=== PATIENT | female | born 1940 | race Caucasian/White ===

== ENCOUNTER → 2016-10-23 | Outpatient (CLI) | payer MEDICARE, OTHER | LOC: RAD 15:14 | PROVIDERS: ATTEND Radiology Radiation Oncology | DX: C54.1 Malignant neoplasm of endometrium (principal); C34.11 Malignant neoplasm of upper lobe, right bronchus or lung; C77.1 Secondary and unspecified malignant neoplasm of intrathoracic lymph nodes; C79.60 Secondary malignant neoplasm of unspecified ovary; R42 Dizziness and giddiness | CPT/HCPCS: 82565; 70553; A9577 ==

== ENCOUNTER → 2016-10-28 | Outpatient (CLI) | payer MEDICARE, OTHER ==
[2016-10-28 10:33] LABS: ABSOLUTE EOSINOPHILS # (AUTO) 0.1 10^3/uL (0.0-0.6); ABSOLUTE LYMPHOCYTES (AUTO) 0.7 10^3/uL (0.5-4.7); ABSOLUTE MONOCYTES (AUTO) 0.6 10^3/uL (0.1-1.4); ABSOLUTE NEUT (AUTO) 4.5 10^3/uL (1.7-8.2); BASOPHILS % (AUTO) 0.5 % (0-2); EOSINOPHILS % (AUTO) 2.2 % (0-6); HEMATOCRIT 44.4 % (36.0-47.0); HEMOGLOBIN 14.9 g/dL (12.0-15.5); HGB HCT DIFFERENCE 0.3; MEAN CORPUSCULAR HEMOGLOBIN 33.3 pg (27.0-33.4); MEAN CORPUSCULAR HGB CONC 33.5 g/dL (32.0-36.0); MEAN CORPUSCULAR VOLUME 99 fl (80-97); MONOCYTES % (AUTO) 10.2 % (3-13); RED BLOOD COUNT 4.47 10^6/uL (3.72-5.28); RED CELL DISTRIBUTION WIDTH 15.9 % (11.5-14.0); SEGMENTED NEUTROPHILS % (AUTO) 75.1 % (42-78); WHITE BLOOD COUNT 5.9 10^3/uL (4.0-10.5)
== END ==
LOC: LAB 10:10
PROVIDERS: ATTEND Radiology Radiation Oncology
DX: C34.11 Malignant neoplasm of upper lobe, right bronchus or lung (principal); C77.1 Secondary and unspecified malignant neoplasm of intrathoracic lymph nodes; C54.1 Malignant neoplasm of endometrium; C79.60 Secondary malignant neoplasm of unspecified ovary
CPT/HCPCS: 36415; 85025

== ENCOUNTER 2016-11-07 21:40 | Inpatient (IN) | payer MEDICARE, OTHER ==
--- NOTE | 2016-11-07 22:07 | ER Document Report ---
ED General - General Stated Complaint: BREATHING PROBLEMS Notes: Patient is a 76-year-old female presents for complaint of difficulty breathing. She has a history of COPD. She still smokes. She has a history of lung cancer. She was a chemotherapy but this was stopped 3 weeks ago because they found cancer into her right shoulder. They have scheduled for radiation of the right shoulder. Tonight she started having worsening difficulty breathing and therefore came to the ER. She was given Solu-Medrol by the paramedics. She's given a DuoNeb. This has helped some. She wears some oxygen at home but usually does not require it during the day. Her primary care doctor is Dr. Wayne. Her oncologist is in [place]. TRAVEL OUTSIDE OF THE [place] IN LAST 30 DAYS: No - Related Data Allergies/Adverse Reactions: piroxicam [From Feldene] Allergy (Intermediate, Verified 07/28/16 12:13) Depression codeine [Codeine] Allergy (Mild, Verified 07/28/16 12:13) hallucination carboplatin Allergy (Verified 07/28/16 12:35) Past Medical History - Social History Smoking Status: Current Every Day Smoker Frequency of alcohol use: None Drug Abuse: None Family History: Reviewed & Not Pertinent - Past Medical History Cardiac Medical History: Reports: Hx Coronary Artery Disease, Hx Heart Attack - 1999, stent x2, Hx Hypercholesterolemia, Hx Hypertension - meds x 12 years, Hx Peripheral Vascular Disease - Bilateral iliac artery stents were placed in September 2013 Pulmonary Medical History: Reports: Hx COPD, Hx Pneumonia - 1967, post op c- section Denies: Hx Asthma, Hx Bronchitis Neurological Medical History: Denies: Hx Cerebrovascular Accident, Hx Seizures GI Medical History: Denies: Hx Hepatitis, Hx Hiatal Hernia, Hx Ulcer Musculoskeltal Medical History: Reports Hx Arthritis - spine, DDD, spinal stenosis Psychiatric Medical History: Denies: Hx Depression Infectious Medical History: Denies: Hx Hepatitis Past Surgical History: Reports: Hx Cardiac Catheterization - w/ stents, Hx Section - x 3, Hx Cholecystectomy, Hx Coronary Stent, Hx Hysterectomy, Hx Orthopedic Surgery - neck surgury, Hx Vascular Surgery - Bilateral iliac artery stents placed in September 2013. Denies: Hx Mastectomy, Hx Open Heart Surgery, Hx Pacemaker - Immunizations Hx Diphtheria, Pertussis, Tetanus Vaccination: Yes Hx Pneumococcal Vaccination: 06/05/12 Review of Systems - Review of Systems Notes: My Normal Review Basic REVIEW OF SYSTEMS: CONSTITUTIONAL : Denies fever, chills, or sweats. Denies recent illness. EENT: Denies eye, ear, throat, or mouth pain or symptoms. Denies nasal or sinus congestion. CARDIOVASCULAR: Denies chest pain. RESPIRATORY: Cough, difficulty breathing, wheezing. GASTROINTESTINAL: Denies abdominal pain. Denies nausea, vomiting, or diarrhea. Denies constipation. Last BM: MUSCULOSKELETAL: Denies neck or back pain or joint pain or swelling. SKIN: Denies rash or skin lesions. NEUROLOGICAL: Denies altered mental status or loss of consciousness. Denies headache. Denies weakness or paralysis or loss of use of either side. Denies problems with gait or speech. Denies sensory or motor loss. ALL OTHER SYSTEMS REVIEWED AND NEGATIVE. Physical Exam - Notes Notes: General Appearance: Well nourished, alert, cooperative, mild acute distress, no obvious discomfort. Vitals: reviewed, See vital signs table. Head: no swelling or tenderness to the head Eyes: PERRL, EOMI, Conjuctiva clear Mouth: No decreasd moisture Neck: Supple, no neck tenderness, No thyromegaly Lungs: Diffuse wheezing, fair air exchange. Some tachypnea. Heart: Normal rate, Regular rythm, No murmur, no rub Abdomen: Normal BS, soft, No rigidity, No abdominal tenderness, No guarding, no rebound, no abdominal masses, no organomegaly Extremities: strength 5/5 in all extremities, good pulses in all extremities, no swelling or tenderness in the extremities, no edema. Skin: warm, dry, appropriate color, no rash Neuro: speech clear, oriented x 3, normal affect, responds appropriately to questions. Course - Re-evaluation Re-evalutation: 11/08/16 00:21 Patient says she is feeling some better; however, she still obviously has slight increased work of breathing. It is improved in comparison when she first arrived. I did take her off oxygen. She dropped down to 89%. This is she stood up off oxygen her sats went down to 85%. I have placed her back on nasal cannula. Will give her more breathing treatments. He'll it's appropriate to admit her for observation for further workup and treatment of her COPD exacerbation. - Laboratory Result Diagrams: 11/07/16 21:44 11/07/16 22:10 Laboratory results interpreted by me: 11/07/16 11/07/16 21:44 22:10 MCV 99 H RDW 15.2 H Plt Count 139 L Seg Neuts % (Manual) 87 H Band Neutrophils % 1 L Lymphocytes % (Manual) 2 L Abs Lymphs (Manual) 0.2 L Carbon Dioxide 32 H Creatinine 0.49 L Glucose 141 H - EKG Interpretation by Me Additional EKG results interpreted by me: 11/07/16 22:06 EKG is reviewed and interpreted by me. EKG shows normal sinus rhythm with rate of [address] segment elevation or depression. No ischemic T wave inversions. KS interval, QRS duration are within normal range. QTc interval is prolonged. Old EKG for comparison is from 09/21/2013. - Transfer of Care Notes: 11/08/16 01:17 Patient continues to have some wheezing. Her lung carter are improved but it's not as good as it were. She still has desaturation we take her off oxygen and desaturates even further when you get up to walk. Patient will be admitted for further workup and treatment of her COPD exacerbation. Dictation of this chart was performed using voice recognition software; therefore, there may be some unintended grammatical errors. Discharge - Discharge Clinical Impression: COPD exacerbation Condition: Stable Disposition: ADMITTED OBSERVATION Admitting Provider: Hospitalist Unit Admitted: Telemetry
[2016-11-07] MEDS ORDERED: IPRATROPIUM/ALBUTEROL 0.5-2.5 MG/3 ML AMPUL NEB ONE (22:14)
[2016-11-07] MEDS: MAGNESIUM SULFATE/D5W 100 ML IV SCH (22:22)
[2016-11-07 22:34] LABS: HEMATOCRIT 43.9 % (36.0-47.0); HEMOGLOBIN 14.8 g/dL (12.0-15.5); HGB HCT DIFFERENCE 0.5; MEAN CORPUSCULAR HEMOGLOBIN 33.4 pg (27.0-33.4); MEAN CORPUSCULAR HGB CONC 33.6 g/dL (32.0-36.0); MEAN CORPUSCULAR VOLUME 99 fl (80-97); RED BLOOD COUNT 4.43 10^6/uL (3.72-5.28); RED CELL DISTRIBUTION WIDTH 15.2 % (11.5-14.0)
[2016-11-07 22:52] LABS: ALANINE AMINOTRANSFERASE 51 U/L (9-52); ALBUMIN 4.2 g/dL (3.5-5.0); ALKALINE PHOSPHATASE 101 U/L (38-126); ANION GAP 9 (5-19); ASPARTATE AMINO TRANSFERASE 30 U/L (14-36); BILIRUBIN,TOTAL 0.7 mg/dL (0.2-1.3); BLOOD UREA NITROGEN 12 mg/dL (7-20); CALCIUM 9.8 mg/dL (8.4-10.2); CARBON DIOXIDE 32 mmol/L (22-30); CHLORIDE 101 mmol/L (98-107); CREATININE RESULT 0.49 mg/dL (0.52-1.25); GLUCOSE 141 mg/dL (75-110); POTASSIUM 3.7 mmol/L (3.6-5.0); SODIUM 141.9 mmol/L (137-145); TOTAL PROTEIN 6.8 g/dL (6.3-8.2)
[2016-11-07 23:10] LABS: BAND NEUTROPHILS % (MANUAL) 1 % (3-5); BASOPHILS % (MANUAL) 0 % (0-2); EOSINOPHILS % (MANUAL) 0 % (0-6); LYMPHOCYTES % (MANUAL) 2 % (13-45); TOTAL CELLS COUNTED 100
[2016-11-07 23:12] LABS: ANISOCYTOSIS SLIGHT; OVALOCYTES 1+; POIKILOCYTOSIS 1+; TEAR DROP CELLS 1+
[2016-11-08] MEDS ORDERED: ALBUTEROL SULFATE 0.083% NEB 2.5 MG/3 ML AMPUL NEB ONE (00:20)
[2016-11-08 00:32] LABS: VENOUS BLOOD BASE EXCESS 4.2 mmol/L; VENOUS BLOOD HCO3 31.1 mmol/L (20-32); VENOUS BLOOD PCO2 54.7 mmHg (35-63); VENOUS BLOOD PH 7.37 (7.30-7.42)
[2016-11-08] MEDS: MAGNESIUM SULFATE/D5W 100 ML IV SCH (00:43)
[2016-11-08] MEDS ORDERED: NITROGLYCERIN 0.4 MG/TAB 25 TAB/BOTTLE SL PRN (01:17)
[2016-11-08] MEDS ORDERED: IPRATROPIUM/ALBUTEROL 0.5-2.5 MG/3 ML AMPUL NEB PRN ×3 (01:17→08:10)
[2016-11-08] MEDS ORDERED: METHYLPREDNISOLONE INJ 125 MG/2 ML SDV IV ONE (01:19)
[2016-11-08] MEDS ORDERED: GUAIFENESIN SYRP 200 MG/10 ML UDC PO PRN (01:19)
[2016-11-08] MEDS ORDERED: ACETAMINOPHEN 325 MG TABLET PO PRN (01:19)
[2016-11-08] MEDS ORDERED: DILTIAZEM HCL 30 MG TABLET PO ONE (01:24)
[2016-11-08] MEDS ORDERED: FLUTICASONE/SALMETEROL DISKUS 250-50 MCG/DOSE IH SCH (01:30)
[2016-11-08] MEDS ORDERED: CEFEPIME 2 GM/D5W RTU 2 GM/50 ML RTUPB IV SCH ×2 (01:30→22:00)
[2016-11-08] MEDS ORDERED: FLUDROCORTISONE ACETATE 0.1 MG TABLET PO SCH ×2 (01:30→10:00)
[2016-11-08] MEDS ORDERED: PREDNISONE 20 MG TABLET PO SCH (01:30)
[2016-11-08] MEDS ORDERED: FLUTICASONE NASAL SPRAY 50 MCG/SPRY 120 SPRAY/16 GM NASL SCH (01:30)
[2016-11-08] MEDS ORDERED: DILTIAZEM HCL 120 MG CAP.SR.24H PO SCH (02:00)
[2016-11-08] MEDS ORDERED: CHOLECALCIFEROL (D3) 1,000 UNIT TABLET PO SCH (02:00)
[2016-11-08] MEDS ORDERED: VENLAFAXINE HCL 75 MG CAP.SR.24H PO SCH (02:00)
[2016-11-08] MEDS ORDERED: CARVEDILOL 12.5 MG TABLET PO SCH ×2 (02:00→10:00)
[2016-11-08 02:07] LABS: CREATINE KINASE MB 0.93 ng/mL (<4.55)
[2016-11-08 02:10] LABS: TROPONIN I < 0.012 ng/mL
[2016-11-08] MEDS ORDERED: CEFEPIME 2 GM/D5W RTU 2 GM/50 ML RTUPB IV ONE ×2 (02:15→13:00)
[2016-11-08] MEDS ORDERED: FLUDROCORTISONE ACETATE 0.1 MG TABLET ONE (03:20)
[2016-11-08] MEDS ORDERED: FLUTICASONE NASAL SPRAY 50 MCG/SPRY 120 SPRAY/16 GM ONE (03:21)
[2016-11-08] MEDS ORDERED: FLUTICASONE/SALMETEROL DISKUS 250-50 MCG/DOSE IH ONE (03:22)
[2016-11-08] MEDS ORDERED: INFLUENZA ADLT QUAD (36MOS+) 2016-17 VAC 0.5 ML SYR IM PRN (05:09)
[2016-11-08 05:50] LABS: CREATINE KINASE MB 1.32 ng/mL (<4.55)
[2016-11-08 05:53] LABS: TROPONIN I < 0.012 ng/mL
[2016-11-08] MEDS: HEPARIN SOD (PORCINE) 5,000 UNIT/ML 1 ML SYRINGE SUBCUT SCH ×3 (06:22→21:43)
[2016-11-08] MEDS: NORMAL SALINE 1000 ML 1,000 ML IV SCH ×2 (06:23→19:35)
--- NOTE | 2016-11-08 07:33 | PDOC H&P ---
History of Present Illness Admission Date/PCP: 11/08/16 01:19 HAMMAD TOTH MD Patient complains of: Shortness of breath and cough History of Present Illness: SHANA GIL is a 76 year old female with a past medical history of COPD, lung cancer with new metastasis and ongoing tobacco dependence who had been her usual state of health until approximately 24 hours prior to presentation developing shortness of breath subjective fever and chills and a nonproductive cough prompting her to seek evaluation emergency room where she's found to have a COPD exacerbation and referred to the hospitalist for admission. She denies chest pain palpitations nausea vomiting or recent antibiotics. Past Medical History Cardiac Medical History: Reports: Coronary Artery Disease, Myocardial Infarction - 1999, stent x2, Hyperlipidema, Hypertension - meds x 12 years, Peripheral Vascular Disease - Bilateral iliac artery stents were placed in September 2013 Pulmonary Medical History: Reports: Chronic Obstructive Pulmonary Disease (COPD) , Pneumonia - 1967, post op Denies: Asthma, Bronchitis Neurological Medical History: Denies: Seizures Malignancy Medical History: Reports: Cervical Cancer, Lung Cancer - With new metastases to shoulder and subsequent discontinuation of chemo GI Medical History: Denies: Hepatitis, Hiatal Hernia Musculoskeltal Medical History: Reports: Arthritis - spine, DDD, spinal stenosis Psychiatric Medical History: Reports: Tobacco Dependency Denies: Depression Hematology: Reports: Anemia - Hx of with 1st (placenta previa) Denies: Sickle Cell Disease Past Surgical History Past Surgical History: Reports: Cardiac Catheterization - w/ stents, Section - x 3, Cholecystectomy, Coronary Stent, Hysterectomy, Orthopedic Surgery - neck surgury, Vascular Surgery - Bilateral iliac artery stents placed in September 2013 Denies: Amputation, Mastectomy, Pacemaker Social History Smoking Status: Current Every Day Smoker Cigarettes Packs Per Day: 0.5 Frequency of Alcohol Use: Occasional Hx Recreational Drug Use: No Drugs: None Hx Prescription Drug Abuse: No - Advance Directive Resuscitation Status: Do Not Resuscitate Family History Family History: Hypertension Parental Family History Reviewed: Yes Children Family History Reviewed: Yes Sibling(s) Family History Reviewed.: Yes Medication/Allergy Home Medications: Albuterol Sulfate [Albuterol Sulfate 2.5mg/3 mL] 1 vial IH Q4 PRN 02/19/14 Albuterol Sulfate [Ventolin Hfa] 1 puff IH Q4 PRN 02/19/14 Alendronate Sodium [Fosamax] 70 mg PO Q7D 02/19/14 Aspirin [Aspirin 325 mg Tablet] 325 mg PO DAILY 02/19/14 Bimatoprost [Lumigan] 1 drop OU QHS 02/19/14 Brimonidine Tartrate [Alphagan P] 1 drop OU TID 02/19/14 Carvedilol [Coreg 12.5 mg Tablet] 12.5 mg PO BID 02/19/14 Cholecalciferol (Vitamin D3) [Vitamin D] 2,000 unit PO DAILY 02/19/14 Diltiazem HCl [Tiazac] 120 mg PO DAILY 02/19/14 Ezetimibe/Simvastatin [Vytorin 10-20 mg Tablet] 1 each PO DAILY 02/19/14 Fludrocortisone Acetate [Florinef 0.1 mg Tablet] 0.1 mg PO Q2D 02/19/14 Fluticasone Propionate [Flonase Nasal [place] 50 Mcg/[place] 16 gm] 1 spray NASL DAILY 02/19/14 Fluticasone/Salmeterol [Advair 250-50 Diskus 28 dose] 1 inh IH Q12H 02/19/14 Folic Acid 1 mg PO DAILY 02/19/14 Ipratropium/Albuterol Sulfate [Duoneb 0.5 mg-3 mg/3 ml Soln] 3 ml IH TID PRN 10/04 Nitroglycerin [Nitrostat 0.4 mg (1/150 Gr) Tabs 25/Bottle] 1 tab SL ASDIR PRN Timolol [Betimol] 1 drop OU DAILY 02/19/14 Tiotropium [place] [Spiriva Handihaler 18 mcg/dose (30 Dose)] 1 cap IH DAILY 10/04 Venlafaxine HCl [Effexor Xr] 150 mg PO DAILY 02/19/14 Levofloxacin [Levaquin 750 mg Tablet] 750 mg PO DAILY #5 tablet 02/21/14 Allergies/Adverse Reactions: piroxicam [From Feldene] Allergy (Intermediate, Verified 07/28/16 12:13) Depression codeine [Codeine] Allergy (Mild, Verified 07/28/16 12:13) hallucination carboplatin Allergy (Verified 07/28/16 12:35) Review of Systems Constitutional: PRESENT: as per HPI, chills, fatigue, fever(s), weakness. ABSENT: headache(s), weight gain, weight loss Eyes: ABSENT: visual disturbances Ears: ABSENT: hearing changes Cardiovascular: ABSENT: chest pain, dyspnea on exertion, edema, orthropnea, palpitations Respiratory: PRESENT: cough, dyspnea. ABSENT: hemoptysis, sputum Gastrointestinal: ABSENT: abdominal pain, constipation, diarrhea, hematemesis, hematochezia, nausea, vomiting Genitourinary: ABSENT: dysuria, hematuria Musculoskeletal: ABSENT: joint swelling Integumentary: ABSENT: rash, wounds Neurological: ABSENT: abnormal gait, abnormal speech, confusion, dizziness, focal weakness, syncope Psychiatric: PRESENT: anxiety. ABSENT: hallucinations, homidical ideation, suicidal ideation Endocrine: ABSENT: cold intolerance, heat intolerance, polydipsia, polyuria Hematologic/Lymphatic: ABSENT: easy bleeding, easy bruising Physical Exam Vital Signs: Temp Pulse Resp BP Pulse Ox 98.0 F 66 24 H 113/56 L 97 11/08/16 05:43 11/08/16 07:16 11/08/16 05:43 11/08/16 05:43 11/08/16 05:43 Intake & Output 11/06/16 11/07/16 11/08/16 11:59 11:59 11:59 Intake Total 5 Balance 5 Weight 45.6 kg General appearance: PRESENT: cooperative, mild distress, thin, other - Cachectic with temporal wasting Eye exam: PRESENT: conjunctiva pink, EOMI, PERRLA. ABSENT: scleral icterus Ear exam: PRESENT: normal external ear exam Mouth exam: PRESENT: moist, tongue midline Neck exam: ABSENT: carotid bruit, JVD, lymphadenopathy, thyromegaly Respiratory exam: PRESENT: accessory muscle use, chest wall tenderness, crackles , decreased breath sounds, prolonged expiratory phas, rales, tachypnea, wheezes. ABSENT: rhonchi Cardiovascular exam: PRESENT: RRR. ABSENT: diastolic murmur, rubs, systolic murmur Pulses: PRESENT: normal dorsalis pedis pul Vascular exam: PRESENT: normal capillary refill GI/Abdominal exam: PRESENT: normal bowel sounds, soft. ABSENT: distended, guarding, mass, organolmegaly, rebound, tenderness Rectal exam: PRESENT: deferred Extremities exam: PRESENT: full ROM. ABSENT: calf tenderness, clubbing, pedal edema Neurological exam: PRESENT: alert, awake, oriented to person, oriented to place , oriented to time, oriented to situation, CN II-XII grossly intact. ABSENT: motor sensory deficit Psychiatric exam: PRESENT: anxious, appropriate affect. ABSENT: homicidal ideation, suicidal ideation Skin exam: PRESENT: dry, intact, warm. ABSENT: cyanosis, rash Results Laboratory Results: 11/08/16 11/08/16 04:55 04:55 Creatine Kinase 53 CK-MB (CK-2) 1.32 Troponin I < 0.012 Impressions: Chest X-Ray 11/07/16 21:44 IMPRESSION: ABNORMAL CONTOUR RIGHT SUPERIOR MEDIASTINUM WITH ADJACENT LINEAR OPACITIES. THIS IS THIS LIKELY REPRESENTS SCARRING RELATED TO TREATMENT OF A PRIOR MALIGNANCY GIVEN PLACEMENT OF RIGHT-SIDED PORT. CORRELATE WITH CLINICAL HISTORY. NO DEFINITE ACUTE CARDIOPULMONARY PROCESS IDENTIFIED. Assessment & Plan - Diagnosis (1) COPD exacerbation Is this a current diagnosis for this admission?: YesPlan: Observation on a monitored bed with empiric antibiotics, albuterol Atrovent, Flonase, prednisone and symptomatically management following up CBC and blood culture (2) Lung cancer, primary, with metastasis from lung to other site Is this a current diagnosis for this admission?: YesPlan: On palliative care continue Supportive management consider hospice consult (3) Tobacco abuse Is this a current diagnosis for this admission?: YesPlan: Tobacco Dependence patient received tobacco cessation counseling and offered nicotine replacement options - Time Time Spent: 30 to 50 Minutes
[2016-11-08] MEDS ORDERED: LEVOFLOXACIN 750 MG/D5W RTU 750 MG/150 ML RTUPB IV SCH (10:00)
[2016-11-08] MEDS ORDERED: (PENDING PHARMACY ID) (Timolol [Betimol] 1 DROP) OU SCH (10:00)
--- NOTE | 2016-11-08 10:39 | EKG REPORT ---
SEVERITY:- ABNORMAL ECG - SINUS RHYTHM RIGHT ATRIAL ABNORMALITY LEFT AXIS DEVIATION CONSIDER RIGHT VENTRICULAR HYPERTROPHY BORDERLINE PROLONGED QT INTERVAL : Confirmed by: Ender Giron 08-Nov-2016 10:38:28
[2016-11-08] MEDS: FLUTICASONE NASAL SPRAY 50 MCG/SPRY 120 SPRAY/16 GM NASL SCH (10:48)
[2016-11-08] MEDS: TIOTROPIUM BROMIDE DPI 5 CAP/KIT (18 MCG/CAP) IH SCH (10:49)
[2016-11-08] MEDS: FLUTICASONE/SALMETEROL DISKUS 250-50 MCG/DOSE IH SCH ×2 (10:49→21:42)
[2016-11-08] MEDS: PREDNISONE 20 MG TABLET PO SCH ×2 (10:50→17:24)
[2016-11-08] MEDS: VENLAFAXINE HCL 75 MG CAP.SR.24H PO SCH (10:50)
[2016-11-08] MEDS: DILTIAZEM HCL 120 MG CAP.SR.24H PO SCH (10:51)
[2016-11-08] MEDS: ASPIRIN 325 MG TABLET PO SCH (10:51)
[2016-11-08] MEDS: FOLIC ACID 1 MG TABLET PO SCH (10:55)
[2016-11-08] MEDS: GUAIFENESIN 600 MG TABLET.SA PO SCH ×2 (10:55→21:42)
[2016-11-08] MEDS: CHOLECALCIFEROL (D3) 1,000 UNIT TABLET PO SCH (10:55)
[2016-11-08 11:27] LABS: CREATINE KINASE MB 1.15 ng/mL (<4.55)
[2016-11-08 11:31] LABS: TROPONIN I < 0.012 ng/mL
[2016-11-08] MEDS: CEFEPIME HCL 2 GM in DEXTROSE 5%-WATER 50 ML IV SCH ×2 (13:33→21:40)
[2016-11-08] MEDS: BRIMONIDINE TARTRATE 0.2% OPH SOLN 5 ML OU SCH ×2 (13:40→21:40)
[2016-11-08] MEDS ORDERED: (PENDING PHARMACY ID) (Brimonidine Tartrate [Alphagan P] 1 DROP) OU SCH (14:00)
[2016-11-08] MEDS: CARVEDILOL 12.5 MG TABLET PO SCH (21:42)
[2016-11-08] MEDS ORDERED: BIMATOPROST 0.01% OPH SOLN 2.5 ML/BOTTLE OU SCH (22:00)
[2016-11-08] MEDS ORDERED: BIMATOPROST OU SCH (22:00)
[2016-11-09] MEDS: HEPARIN SOD (PORCINE) 5,000 UNIT/ML 1 ML SYRINGE SUBCUT SCH (05:54)
[2016-11-09] MEDS: BRIMONIDINE TARTRATE 0.2% OPH SOLN 5 ML OU SCH (05:54)
[2016-11-09 07:09] LABS: HEMATOCRIT 37.4 % (36.0-47.0); HEMOGLOBIN 12.8 g/dL (12.0-15.5); MEAN CORPUSCULAR HEMOGLOBIN 34.2 pg (27.0-33.4); MEAN CORPUSCULAR HGB CONC 34.2 g/dL (32.0-36.0); MEAN CORPUSCULAR VOLUME 100 fl (80-97); RED BLOOD COUNT 3.74 10^6/uL (3.72-5.28); RED CELL DISTRIBUTION WIDTH 15.8 % (11.5-14.0); WHITE BLOOD COUNT 7.8 10^3/uL (4.0-10.5)
[2016-11-09 07:22] LABS: ANION GAP 7 (5-19); BLOOD UREA NITROGEN 17 mg/dL (7-20); CALCIUM 8.8 mg/dL (8.4-10.2); CARBON DIOXIDE 28 mmol/L (22-30); CHLORIDE 106 mmol/L (98-107); CREATININE RESULT 0.41 mg/dL (0.52-1.25); GLUCOSE 109 mg/dL (75-110); POTASSIUM 3.9 mmol/L (3.6-5.0); SODIUM 141.1 mmol/L (137-145)
[2016-11-09 07:25] LABS: BAND NEUTROPHILS % (MANUAL) 1 % (3-5); BASOPHILS % (MANUAL) 0 % (0-2); EOSINOPHILS % (MANUAL) 0 % (0-6); LYMPHOCYTES % (MANUAL) 2 % (13-45); TOTAL CELLS COUNTED 100
[2016-11-09 07:27] LABS: ANISOCYTOSIS 1+; OVALOCYTES 1+; POIKILOCYTOSIS 1+
[2016-11-09] MEDS ORDERED: ASPIRIN 325 MG TABLET PO SCH (10:00)
[2016-11-09] MEDS ORDERED: PREDNISONE 20 MG TABLET PO SCH (10:00)
[2016-11-09] MEDS ORDERED: LEVOFLOXACIN 750 MG TABLET PO SCH (10:00)
[2016-11-09] MEDS ORDERED: (PENDING PHARMACY ID) (Timolol [Betimol] 5 ML) OU SCH (10:00)
[2016-11-09] MEDS: GUAIFENESIN 600 MG TABLET.SA PO SCH (10:02)
[2016-11-09] MEDS: VENLAFAXINE HCL 75 MG CAP.SR.24H PO SCH (10:03)
[2016-11-09] MEDS: ASPIRIN 325 MG TABLET PO SCH (10:03)
[2016-11-09] MEDS: CHOLECALCIFEROL (D3) 1,000 UNIT TABLET PO SCH (10:03)
[2016-11-09] MEDS: FOLIC ACID 1 MG TABLET PO SCH (10:04)
[2016-11-09] MEDS: DILTIAZEM HCL 120 MG CAP.SR.24H PO SCH (10:04)
[2016-11-09] MEDS: TIOTROPIUM BROMIDE DPI 5 CAP/KIT (18 MCG/CAP) IH SCH (10:05)
[2016-11-09] MEDS: CARVEDILOL 12.5 MG TABLET PO SCH (10:05)
[2016-11-09] MEDS: FLUTICASONE NASAL SPRAY 50 MCG/SPRY 120 SPRAY/16 GM NASL SCH (10:06)
[2016-11-09] MEDS: FLUTICASONE/SALMETEROL DISKUS 250-50 MCG/DOSE IH SCH (10:06)
[2016-11-09 11:41] VITALS: BP 113/56
--- NOTE | 2016-11-10 07:49 | PDOC DISCHARGE SUMMARY ---
General - Admit/Disc Date/PCP Admission Date/Primary Care Provider: 11/08/16 01:19 HAMMAD TOTH MD Discharge Date: 11/09/16 - Additional Information Resuscitation Status: Do Not Resuscitate Discharge Activity: Activity As Tolerated, Balance Activity w/Rest Home Medications: Albuterol Sulfate [Albuterol Sulfate 2.5mg/3 mL] 1 vial IH Q4HP PRN 11/08/16 Albuterol Sulfate [Ventolin Hfa] 1 puff IH Q4HP PRN 11/08/16 Alendronate Sodium [Fosamax] 70 mg PO TH@1000 11/08/16 Aspirin [Aspirin 325 mg Tablet] 325 mg PO DAILY 11/08/16 Bimatoprost 5 ml OU QHS 11/08/16 Brimonidine Tartrate [Alphagan P] 1 drop OU Q8 11/08/16 Carvedilol [Coreg 12.5 mg Tablet] 12.5 mg PO Q12 11/08/16 Cholecalciferol (Vitamin D3) [Vitamin D3 2000 unit Tablet] 2,000 unit PO DAILY 11/08/16 Diltiazem HCl [Diltiazem ER] 120 mg PO DAILY 11/08/16 Ezetimibe/Simvastatin [Vytorin 10-20 mg Tablet] 1 each PO DAILY 11/08/16 Fludrocortisone Acetate [Florinef 0.1 mg Tablet] 0.1 mg PO Q2D 11/08/16 Fluticasone Propionate [Flonase Nasal [place] 50 Mcg/[place] 16 gm] 1 spray NASL DAILY 11/08/16 Fluticasone/Salmeterol [Advair 250-50 Diskus 14 Dose/Diskus] 1 inh IH Q12 Folic Acid [Folvite 1 mg Tablet] 1 mg PO DAILY 11/08/16 Nitroglycerin [Nitrostat 0.4 mg (1/150 Gr) Tabs 25/Bottle] 25 tab SL ASDIR PRN 11/08/16 Timolol [Betimol] 5 ml OU DAILY 11/08/16 Tiotropium [place] [Spiriva Handihaler 5 Cap/Kit (18 Mcg/Cap)] 1 cap IH DAILY Venlafaxine HCl ER [Effexor Xr 75 mg Cap.sr] 150 mg PO DAILY 11/08/16 Acetaminophen [Tylenol 325 mg Tablet] 650 mg PO Q4HP PRN tablet 11/09/16 Aspirin [Aspirin 325 mg Tablet] 325 mg PO DAILY tablet 11/09/16 Bimatoprost [[place]umigan 0.01% Oph Soln 2.5 ml/Bottle] 1 drop OU QHS bottle Cholecalciferol (Vitamin D3) [Vitamin D3 1000 Unit Tablet] 2,000 unit PO DAILY tablet 11/09/16 Diltiazem HCl [Cardizem Cd 120 mg Capsule] 120 mg PO DAILY cap.sr.24h 11/09/16 Fludrocortisone Acetate [Florinef 0.1 mg Tablet] 0.1 mg PO Q2D@1000 tablet Fluticasone Propionate [Flonase Nasal [place] 50 Mcg/[place] 16 gm] 1 spray NASL DAILY spray.pump 11/09/16 Fluticasone/Salmeterol [Advair 250-50 Diskus 14 Dose/Diskus] 1 inh IH Q12 inhaler 11/09/16 Folic Acid [Folvite 1 mg Tablet] 1 mg PO DAILY tablet 11/09/16 Guaifenesin [Mucinex Sr 600 mg Tablet.sa] 1,200 mg PO Q12 tablet.sa 11/09/16 Ipratropium/Albuterol Sulfate [Duoneb 3 ml Ampul] 3 ml NEB RTQ4HP PRN vial.neb 11/09/16 Levofloxacin [Levaquin 750 mg Tablet] 750 mg PO DAILY #7 tablet 11/09/16 Prednisone [Deltasone 20 mg Tablet] 20 mg PO BID #10 tablet 11/09/16 Venlafaxine HCl ER [Effexor Xr 75 mg Cap.sr] 150 mg PO DAILY cap.sr.24h History of Present Illness Patient complains of: Increasing shortness of breath and dyspnea History of Present Illness: SHANA GIL is a 76 year old female with history of COPD on home oxygen, lung cancer with metastasis on Palliative care, CAD, HTN, tobacco abuse and dysplipidemia. She presented to ED on the evening of 11/07, complaing of increasing shortness of breath, productive cough and chills. Chest xray showed no pneumonia. She had no leucocytosis or fever. Room air oxygen saturating was 88%. She states she generally only wears oxygen at night. She was started on steroids, empiric antibiotic therapy and nebulizer treatments and referred to the hospitalist service for admission. She improved over the next 2 days back to baseline. Physical Exam Vital Signs: Temp Pulse Resp BP Pulse Ox 98.2 F 66 22 H 113/56 L 97 11/09/16 11:35 11/09/16 11:35 11/09/16 11:35 11/09/16 11:35 11/09/16 11:35 Intake & Output 11/09/16 11/10/16 11/11/16 06:59 06:59 06:59 Intake Total 2595 480 Balance 2595 480 Weight 46.2 kg General appearance: PRESENT: no acute distress, thin, well-developed Head exam: PRESENT: atraumatic, normocephalic Eye exam: PRESENT: conjunctiva pink, EOMI, PERRLA. ABSENT: scleral icterus Ear exam: PRESENT: normal external ear exam Mouth exam: PRESENT: moist, tongue midline Neck exam: ABSENT: carotid bruit, JVD, lymphadenopathy, thyromegaly Respiratory exam: PRESENT: decreased breath sounds, symmetrical, unlabored Cardiovascular exam: PRESENT: RRR. ABSENT: diastolic murmur, rubs, systolic murmur Pulses: PRESENT: normal dorsalis pedis pul GI/Abdominal exam: PRESENT: normal bowel sounds, soft. ABSENT: distended, guarding, mass, organolmegaly, rebound, tenderness Rectal exam: PRESENT: deferred Extremities exam: PRESENT: full ROM. ABSENT: calf tenderness, clubbing, pedal edema Psychiatric exam: PRESENT: appropriate affect, normal mood. ABSENT: homicidal ideation, suicidal ideation Skin exam: PRESENT: dry, intact, warm. ABSENT: cyanosis, rash Results Laboratory Results: 11/09/16 05:40 11/09/16 05:40 11/08/16 11/08/16 11/08/16 04:55 04:55 10:50 Creatine Kinase 53 51 CK-MB (CK-2) 1.32 Troponin I < 0.012 11/08/16 10:50 Creatine Kinase CK-MB (CK-2) 1.15 Troponin I < 0.012 Impressions: Chest X-Ray 11/07/16 21:44 IMPRESSION: ABNORMAL CONTOUR RIGHT SUPERIOR MEDIASTINUM WITH ADJACENT LINEAR OPACITIES. THIS IS THIS LIKELY REPRESENTS SCARRING RELATED TO TREATMENT OF A PRIOR MALIGNANCY GIVEN PLACEMENT OF RIGHT-SIDED PORT. CORRELATE WITH CLINICAL HISTORY. NO DEFINITE ACUTE CARDIOPULMONARY PROCESS IDENTIFIED. Qualifiers PATEINT BEING DISCHARGED WITH ANY OF THE FOLLOWING DIAGNOSIS?: No Plan Discharge Plan: Home with . Follow up with primary care in one week. Time Spent: Less than 30 Minutes
[2016-11-10] MEDS ORDERED: FLUDROCORTISONE ACETATE 0.1 MG TABLET PO SCH (10:00)
== END 2016-11-09 12:00 | disposition home or self-care (01) | DRG 191 ==
LOC: ER 21:40 → EH 11-08 01:19 → OBSVTOIN 11-08 01:19 → UNDOADMOB 11-08 02:15 → EH 11-08 02:15 → 4N 11-08 04:46
PROVIDERS: ADMIT Internal Medicine; ATTEND Internal Medicine
PROC: 3E0234Z Introduction of Serum, Toxoid and Vaccine into Muscle, Percutaneous Approach (ICD-10-PCS; principal; 2016-11-09)
DX: J44.1 Chronic obstructive pulmonary disease with (acute) exacerbation (principal); C34.90 Malignant neoplasm of unspecified part of unspecified bronchus or lung; C79.89 Secondary malignant neoplasm of other specified sites; F17.210 Nicotine dependence, cigarettes, uncomplicated; I25.10 Atherosclerotic heart disease of native coronary artery without angina pectoris; E78.00 Pure hypercholesterolemia, unspecified; I10 Essential (primary) hypertension; I73.9 Peripheral vascular disease, unspecified; Z85.41 Personal history of malignant neoplasm of cervix uteri; Z66 Do not resuscitate; Z79.82 Long term (current) use of aspirin; Z99.81 Dependence on supplemental oxygen; Z79.899 Other long term (current) drug therapy; Z51.5 Encounter for palliative care; Z95.5 Presence of coronary angioplasty implant and graft; Z88.8 Allergy status to other drugs, medicaments and biological substances; Z88.6 Allergy status to analgesic agent; Z92.21 Personal history of antineoplastic chemotherapy; Z23 Encounter for immunization
CPT/HCPCS: 36415; 71010; 80048; 80053; 82550; 82553; 82803; 84484; 85025; 90686; 93005; 93010; 94640; 94799; 96365; 96366; 99285; J0692; J1644; J1956; J2930; J3475; J3490; J7030; J7512; J7620

== ENCOUNTER 2016-11-09 17:22 | Inpatient (IN) | payer MEDICARE, OTHER ==
--- NOTE | 2016-11-09 17:34 | ER Document Report ---
ED Medical Screen (RME) - General Stated Complaint: SHORTNESS OF BREATH Mode of Arrival: Medic Notes: Patient was discharged from the hospital earlier today for respiratory infection. Patient called EMS for shortness of breath. Patient denies any chest pain. Patient's oxygen saturation at home was low 80s. Patient was given a nebulizer treatment per EMS, and oxygen sat increased although patient tachypnea. hx: Lung CA, COPD TRAVEL OUTSIDE OF THE [place] IN LAST 30 DAYS: No - Related Data Allergies/Adverse Reactions: piroxicam [From Feldene] Allergy (Intermediate, Verified 11/09/16 17:51) Depression codeine [Codeine] Allergy (Mild, Verified 11/09/16 17:51) hallucination carboplatin Allergy (Verified 11/09/16 17:51) Past Medical History - Social History Family history: Reviewed & Not Pertinent - Past Medical History Cardiac Medical History: Reports: Hx Coronary Artery Disease, Hx Heart Attack - 1999, stent x2, Hx Hypercholesterolemia, Hx Hypertension - meds x 12 years, Hx Peripheral Vascular Disease - Bilateral iliac artery stents were placed in September 2013 Pulmonary Medical History: Reports: Hx COPD, Hx Pneumonia - 1967, post op c- section Denies: Hx Asthma, Hx Bronchitis Neurological Medical History: Denies: Hx Cerebrovascular Accident, Hx Seizures Malignancy Medical History: Reports: Hx Cervical Cancer, Hx Lung Cancer - With new metastases to shoulder and subsequent discontinuation of chemo GI Medical History: Denies: Hx Hepatitis, Hx Hiatal Hernia, Hx Ulcer Musculoskeltal Medical History: Reports Hx Arthritis - spine, DDD, spinal stenosis Psychiatric Medical History: Denies: Hx Depression Infectious Medical History: Denies: Hx Hepatitis Past Surgical History: Reports: Hx Cardiac Catheterization - w/ stents, Hx Section - x 3, Hx Cholecystectomy, Hx Coronary Stent, Hx Hysterectomy, Hx Orthopedic Surgery - neck surgury, Hx Vascular Surgery - Bilateral iliac artery stents placed in September 2013. Denies: Hx Mastectomy, Hx Open Heart Surgery, Hx Pacemaker - Immunizations Hx Diphtheria, Pertussis, Tetanus Vaccination: Yes Physical Exam - Respiratory Respiratory status: Labored, Tachypnea Breath sounds: Productive cough, Rales, Rhonchi
[2016-11-09] MEDS ORDERED: IPRATROPIUM/ALBUTEROL 0.5-2.5 MG/3 ML AMPUL NEB ONE ×3 (17:52→20:14)
[2016-11-09 19:16] LABS: HEMATOCRIT 43.2 % (36.0-47.0); HEMOGLOBIN 14.5 g/dL (12.0-15.5); HGB HCT DIFFERENCE 0.3; MEAN CORPUSCULAR HEMOGLOBIN 33.7 pg (27.0-33.4); MEAN CORPUSCULAR HGB CONC 33.6 g/dL (32.0-36.0); MEAN CORPUSCULAR VOLUME 100 fl (80-97); RED CELL DISTRIBUTION WIDTH 15.4 % (11.5-14.0); WHITE BLOOD COUNT 8.5 10^3/uL (4.0-10.5)
[2016-11-09 19:33] LABS: ALANINE AMINOTRANSFERASE 92 U/L (9-52); ALBUMIN 3.9 g/dL (3.5-5.0); ALKALINE PHOSPHATASE 109 U/L (38-126); ANION GAP 8 (5-19); ASPARTATE AMINO TRANSFERASE 79 U/L (14-36); BILIRUBIN,TOTAL 0.5 mg/dL (0.2-1.3); BLOOD UREA NITROGEN 16 mg/dL (7-20); CALCIUM 9.5 mg/dL (8.4-10.2); CARBON DIOXIDE 34 mmol/L (22-30); CHLORIDE 102 mmol/L (98-107); CREATINE KINASE 61 U/L (30-135); CREATININE RESULT 0.46 mg/dL (0.52-1.25); GLUCOSE 90 mg/dL (75-110); POTASSIUM 4.1 mmol/L (3.6-5.0); SODIUM 143.6 mmol/L (137-145); TOTAL PROTEIN 6.5 g/dL (6.3-8.2)
[2016-11-09 19:44] LABS: CREATINE KINASE MB 2.62 ng/mL (<4.55)
[2016-11-09 19:45] LABS: TROPONIN I < 0.012 ng/mL
[2016-11-09 19:49] LABS: BASOPHILS % (MANUAL) 0 % (0-2); EOSINOPHILS % (MANUAL) 0 % (0-6); LYMPHOCYTES % (MANUAL) 6 % (13-45); TOTAL CELLS COUNTED 100
[2016-11-09 20:00] LABS: ANISOCYTOSIS SLIGHT; POIKILOCYTOSIS 1+; TOXIC VACUOLATION PRESENT
[2016-11-09 20:01] LABS: OVALOCYTES 1+
[2016-11-09 20:02] LABS: APPEARANCE,URINE CLEAR; BILIRUBIN,URINE NEGATIVE (NEGATIVE); GLUCOSE, URINE NEGATIVE (NEGATIVE); KETONES,URINE NEGATIVE (NEGATIVE); LEUKOCYTE ESTERASE,URINE NEGATIVE (NEGATIVE); NITRITE,URINE NEGATIVE (NEGATIVE); PROTEIN,URINE NEGATIVE (NEGATIVE); URINE SPECIFIC GRAVITY 1.015; UROBILINOGEN,URINE NEGATIVE mg/dL (<2.0)
[2016-11-09] MEDS ORDERED: ALBUTEROL SULFATE 0.083% NEB 2.5 MG/3 ML AMPUL NEB ONE ×2 (20:14→23:15)
--- NOTE | 2016-11-09 20:22 | ER Document Report ---
ED General - General Chief Complaint: Breathing Difficulty Stated Complaint: SHORTNESS OF BREATH Mode of Arrival: Medic Information source: Patient, Relative Notes: This is a 76-year-old female with a history of COPD and metastatic lung cancer who was just discharged from this facility earlier today after being admitted for 2 nights with a COPD exacerbation. She states that upon arriving home this afternoon, she had increased work of breathing and increasing shortness of breath and her oxygen saturation at home was 80% according to her . She feels significantly weak everywhere and has difficulty ambulating secondary to fatigue. She has had no fevers since leaving the hospital today. She does have home O2 although she is only using it at nighttime when she sleeps. She normally does not have to use oxygen during the day. Currently she denies any chest pain. She was discharged with prescriptions for Levaquin and prednisone which she has picked up from the pharmacy but has not started taking yet. TRAVEL OUTSIDE OF THE [place] IN LAST 30 DAYS: No - Related Data Allergies/Adverse Reactions: piroxicam [From Feldene] Allergy (Intermediate, Verified 11/09/16 17:51) Depression codeine [Codeine] Allergy (Mild, Verified 11/09/16 17:51) hallucination carboplatin Allergy (Verified 11/09/16 17:51) Past Medical History - General Information source: Patient, [facility] Records - Social History Smoking Status: Current Every Day Smoker Chew tobacco use (# tins/day): No Frequency of alcohol use: None Drug Abuse: None Family History: Hypertension Patient has suicidal ideation: No Patient has homicidal ideation: No - Past Medical History Cardiac Medical History: Reports: Hx Coronary Artery Disease, Hx Heart Attack - 1999, stent x2, Hx Hypercholesterolemia, Hx Hypertension - meds x 12 years, Hx Peripheral Vascular Disease - Bilateral iliac artery stents were placed in September 2013 Pulmonary Medical History: Reports: Hx COPD, Hx Pneumonia - 1967, post op c- section Denies: Hx Asthma, Hx Bronchitis Neurological Medical History: Denies: Hx Cerebrovascular Accident, Hx Seizures Renal/ Medical History: Denies: Hx Peritoneal Dialysis Malignancy Medical History: Reports: Hx Cervical Cancer, Hx Lung Cancer - With new metastases to shoulder and subsequent discontinuation of chemo GI Medical History: Denies: Hx Hepatitis, Hx Hiatal Hernia, Hx Ulcer Musculoskeltal Medical History: Reports Hx Arthritis - spine, DDD, spinal stenosis Psychiatric Medical History: Denies: Hx Depression Infectious Medical History: Denies: Hx Hepatitis Past Surgical History: Reports: Hx Cardiac Catheterization - w/ stents, Hx Section - x 3, Hx Cholecystectomy, Hx Coronary Stent, Hx Hysterectomy, Hx Orthopedic Surgery - neck surgury, Hx Vascular Surgery - Bilateral iliac artery stents placed in September 2013. Denies: Hx Mastectomy, Hx Open Heart Surgery, Hx Pacemaker - Immunizations Hx Diphtheria, Pertussis, Tetanus Vaccination: Yes Hx Pneumococcal Vaccination: 06/05/12 Review of Systems - Review of Systems Notes: REVIEW OF SYSTEMS: CONSTITUTIONAL : Denies fever, chills, or sweats. EENT: Denies eye, ear, throat, or mouth pain or symptoms. CARDIOVASCULAR: Denies chest pain. RESPIRATORY: As per history of present illness. GASTROINTESTINAL: Denies abdominal pain. Denies nausea, vomiting, or diarrhea. GENITOURINARY: Denies difficulty urinating, painful urination, burning, frequency, or blood in urine. MUSCULOSKELETAL: Denies neck or back pain or joint pain or swelling. SKIN: Denies rash or skin lesions. HEMATOLOGIC : Denies easy bruising or bleeding. LYMPHATIC: Denies swollen, enlarged glands. NEUROLOGICAL: No headache. Denies complaints PSYCHIATRIC: Denies anxiety or stress or depression. ALL OTHER SYSTEMS REVIEWED AND NEGATIVE. Physical Exam - Vital signs Vitals: Temp Pulse Resp BP Pulse Ox 97.8 F 77 22 H 137/70 H 91 L 11/09/16 17:50 11/09/16 17:50 11/09/16 17:50 11/09/16 17:50 11/09/16 17:50 - Notes Notes: PHYSICAL EXAMINATION: GENERAL: frail elderly female, somewhat ill appearing with conversational dyspnea and increased work of breathing HEAD: Atraumatic, normocephalic. EYES: Pupils equal round and reactive to light, extraocular movements intact, sclera anicteric, conjunctiva are normal. ENT: nares patent, oropharynx clear without exudates. Moist mucous membranes. NECK: Normal range of motion, supple without lymphadenopathy LUNGS: Decreased bibasilar breath sounds. No obvious wheezes or rales or rhonchi noted. HEART: Regular rate and rhythm without murmurs ABDOMEN: Soft, nontender, normoactive bowel sounds. No guarding, no rebound. No masses appreciated. EXTREMITIES: Normal range of motion,no edema NEUROLOGICAL: Cranial nerves grossly intact. Normal speech, no gross focal motor or sensory deficits noted PSYCH: Normal mood, somewhat anxious affect SKIN: Warm, Dry, normal turgor, no rashes or lesions noted. Course - Re-evaluation Re-evalutation: 11/09/16 23:16 Patient states that she subjectively feels a little bit better after the nebs. However she did get up to the bedside commode and just the minimal activity of getting to the bedside commode and back to the bed she is significantly short of breath and using accessory muscles to breathe. With this increased work of breathing with minimal exertion and feels appropriate to admit the patient tonight for further breathing treatments. 11/10/16 03:00 - Vital Signs Vital signs: Temp Pulse Resp BP Pulse Ox 97.8 F 77 20 114/56 L 99 11/09/16 17:50 11/09/16 17:50 11/10/16 01:01 11/10/16 01:01 11/10/16 01:01 - Laboratory Result Diagrams: 11/09/16 18:39 11/09/16 18:39 Laboratory results interpreted by me: 11/09/16 11/09/16 11/09/16 18:39 18:39 18:39 MCV 100 H MCH 33.7 H RDW 15.4 H Seg Neuts % (Manual) 80 H Lymphocytes % (Manual) 6 L Carbon Dioxide 34 H Creatinine 0.46 L AST 79 H ALT 92 H NT-Pro-B Natriuret Pep 1690 H - Diagnostic Test Radiology reviewed: Reports reviewed - CTA chest: no PE, no infiltrate Discharge - Discharge Clinical Impression: Obstructive chronic bronchitis with exacerbation Lung cancer Qualifiers: Laterality: unspecified laterality Lung location: unspecified part of lung Qualified Code(s): C34.90 - Malignant neoplasm of unspecified part of unspecified bronchus or lung Condition: Fair Disposition: ADMITTED INPATIENT Admitting Provider: [facility] Unit Admitted: Telemetry
[2016-11-09] MEDS ORDERED: METHYLPREDNISOLONE INJ 125 MG/2 ML SDV IV ONE (20:51)
--- NOTE | 2016-11-09 22:01 | EKG REPORT ---
SEVERITY:- ABNORMAL ECG - SINUS RHYTHM PROBABLE LEFT ATRIAL ABNORMALITY BORDERLINE LEFT AXIS DEVIATION BORDERLINE R WAVE PROGRESSION, ANTERIOR LEADS NONSPECIFIC T ABNORMALITIES, ANT-LAT LEADS SEC TO IRBBB IRBBB : Confirmed by: Ender Giron 09-Nov-2016 22:00:48
[2016-11-09] MEDS ORDERED: LORAZEPAM INJ 2 MG/1 ML VIAL IV ONE (23:16)
[2016-11-09] MEDS ORDERED: LEVOFLOXACIN 500 MG/D5W RTU 100 ML IV ONE (23:18)
[2016-11-09] MEDS ORDERED: ACETAMINOPHEN 325 MG TABLET PO PRN (23:41)
[2016-11-09] MEDS ORDERED: ONDANSETRON HCL INJ/PF 4 MG/2 ML SDV IV PRN (23:44)
[2016-11-09] MEDS ORDERED: MAGNESIUM HYDROXIDE SUSP 30 ML UDCUP PO PRN (23:44)
[2016-11-09] MEDS ORDERED: FLUTICASONE NASAL SPRAY 50 MCG/SPRY 120 SPRAY/16 GM NASL ONE (23:45)
[2016-11-09] MEDS ORDERED: PREDNISONE 20 MG TABLET PO ONE (23:45)
[2016-11-09] MEDS ORDERED: FLUDROCORTISONE ACETATE 0.1 MG TABLET PO SCH (23:45)
[2016-11-09] MEDS ORDERED: NICOTINE 7 MG/24 HR PATCH.TD24 TD ONE (23:58)
[2016-11-10] MEDS ORDERED: NICOTINE 7 MG/24 HR PATCH.TD24 ONE (01:10)
[2016-11-10] MEDS ORDERED: FLUTICASONE NASAL SPRAY 50 MCG/SPRY 120 SPRAY/16 GM ONE (01:10)
[2016-11-10] MEDS: IPRATROPIUM/ALBUTEROL 0.5-2.5 MG/3 ML AMPUL NEB SCH ×4 (01:11→20:49)
[2016-11-10] MEDS ORDERED: FLUDROCORTISONE ACETATE 0.1 MG TABLET ONE (02:08)
--- NOTE | 2016-11-10 06:32 | PDOC H&P ---
History of Present Illness Admission Date/PCP: 11/09/16 23:44 Patient complains of: Shortness of breath History of Present Illness: SHANA GIL is a 76 year old female with a past medical history of COPD, lung cancer with new metastasis and ongoing tobacco dependence who was discharged 6 hours ago following an observation for COPD exacerbation. At home she was found to be tachypneic and unable to monitor pulse oximetry prompting to seek reevaluation emergency room where she's found to have tachypnea in the 30s and oxygen saturation of 87 on 2 L. She receives IV Solu-Medrol and referred to the hospitalist for admission. She denies chest pain nausea vomiting diaphoresis. Past Medical History Cardiac Medical History: Reports: Coronary Artery Disease, Myocardial Infarction - 1999, stent x2, Hyperlipidema, Hypertension - meds x 12 years, Peripheral Vascular Disease - Bilateral iliac artery stents were placed in September 2013 Pulmonary Medical History: Reports: Chronic Obstructive Pulmonary Disease (COPD) , Pneumonia - 1967, post op Denies: Asthma, Bronchitis Neurological Medical History: Denies: Seizures Malignancy Medical History: Reports: Cervical Cancer, Lung Cancer - With new metastases to shoulder and subsequent discontinuation of chemo GI Medical History: Denies: Hepatitis, Hiatal Hernia Musculoskeltal Medical History: Reports: Arthritis - spine, DDD, spinal stenosis Psychiatric Medical History: Denies: Depression Hematology: Reports: Anemia - Hx of with 1st (placenta previa) Denies: Sickle Cell Disease Past Surgical History Past Surgical History: Reports: Cardiac Catheterization - w/ stents, Section - x 3, Cholecystectomy, Coronary Stent, Hysterectomy, Orthopedic Surgery - neck surgury, Vascular Surgery - Bilateral iliac artery stents placed in September 2013 Denies: Amputation, Mastectomy, Pacemaker Social History Smoking Status: Current Every Day Smoker Frequency of Alcohol Use: Occasional Hx Recreational Drug Use: No Drugs: None Hx Prescription Drug Abuse: No - Advance Directive Resuscitation Status: Do Not Resuscitate Family History Family History: Hypertension Parental Family History Reviewed: Yes Children Family History Reviewed: Yes Sibling(s) Family History Reviewed.: Yes Medication/Allergy Home Medications: Albuterol Sulfate [Albuterol Sulfate 2.5mg/3 mL] 1 vial IH Q4HP PRN 11/08/16 Albuterol Sulfate [Ventolin Hfa] 1 puff IH Q4HP PRN 11/08/16 Alendronate Sodium [Fosamax] 70 mg PO TH@1000 11/08/16 Aspirin [Aspirin 325 mg Tablet] 325 mg PO DAILY 11/08/16 Bimatoprost 5 ml OU QHS 11/08/16 Brimonidine Tartrate [Alphagan P] 1 drop OU Q8 11/08/16 Carvedilol [Coreg 12.5 mg Tablet] 12.5 mg PO Q12 11/08/16 Cholecalciferol (Vitamin D3) [Vitamin D3 2000 unit Tablet] 2,000 unit PO DAILY 11/08/16 Diltiazem HCl [Diltiazem ER] 120 mg PO DAILY 11/08/16 Ezetimibe/Simvastatin [Vytorin 10-20 mg Tablet] 1 each PO DAILY 11/08/16 Fludrocortisone Acetate [Florinef 0.1 mg Tablet] 0.1 mg PO Q2D 11/08/16 Fluticasone Propionate [Flonase Nasal [place] 50 Mcg/[place] 16 gm] 1 spray NASL DAILY 11/08/16 Fluticasone/Salmeterol [Advair 250-50 Diskus 14 Dose/Diskus] 1 inh IH Q12 Folic Acid [Folvite 1 mg Tablet] 1 mg PO DAILY 11/08/16 Nitroglycerin [Nitrostat 0.4 mg (1/150 Gr) Tabs 25/Bottle] 25 tab SL ASDIR PRN 11/08/16 Timolol [Betimol] 5 ml OU DAILY 11/08/16 Tiotropium [place] [Spiriva Handihaler 5 Cap/Kit (18 Mcg/Cap)] 1 cap IH DAILY Venlafaxine HCl ER [Effexor Xr 75 mg Cap.sr] 150 mg PO DAILY 11/08/16 Acetaminophen [Tylenol 325 mg Tablet] 650 mg PO Q4HP PRN tablet 11/09/16 Aspirin [Aspirin 325 mg Tablet] 325 mg PO DAILY tablet 11/09/16 Bimatoprost [Lumigan 0.01% Oph Soln 2.5 ml/Bottle] 1 drop OU QHS bottle Cholecalciferol (Vitamin D3) [Vitamin D3 1000 Unit Tablet] 2,000 unit PO DAILY tablet 11/09/16 Diltiazem HCl [Cardizem Cd 120 mg Capsule] 120 mg PO DAILY cap.sr.24h 11/09/16 Fludrocortisone Acetate [Florinef 0.1 mg Tablet] 0.1 mg PO Q2D@1000 tablet Fluticasone Propionate [Flonase Nasal [place] 50 Mcg/[place] 16 gm] 1 spray NASL DAILY spray.pump 11/09/16 Fluticasone/Salmeterol [Advair 250-50 Diskus 14 Dose/Diskus] 1 inh IH Q12 inhaler 11/09/16 Folic Acid [Folvite 1 mg Tablet] 1 mg PO DAILY tablet 11/09/16 Guaifenesin [Mucinex Sr 600 mg Tablet.sa] 1,200 mg PO Q12 tablet.sa 11/09/16 Ipratropium/Albuterol Sulfate [Duoneb 3 ml Ampul] 3 ml [facility] RTQ4HP PRN vial.neb 11/09/16 Levofloxacin [Levaquin 750 mg Tablet] 750 mg PO DAILY #7 tablet 11/09/16 Prednisone [Deltasone 20 mg Tablet] 20 mg PO BID #10 tablet 11/09/16 Venlafaxine HCl ER [Effexor Xr 75 mg Cap.sr] 150 mg PO DAILY cap.sr.24h Allergies/Adverse Reactions: piroxicam [From Feldene] Allergy (Intermediate, Verified 11/09/16 17:51) Depression codeine [Codeine] Allergy (Mild, Verified 11/09/16 17:51) hallucination carboplatin Allergy (Verified 11/09/16 17:51) Review of Systems Constitutional: PRESENT: fatigue, weakness. ABSENT: chills, fever(s), headache( s), weight gain, weight loss Eyes: ABSENT: visual disturbances Ears: ABSENT: hearing changes Cardiovascular: ABSENT: chest pain, dyspnea on exertion, edema, orthropnea, palpitations Respiratory: PRESENT: cough, dyspnea. ABSENT: hemoptysis, sputum Gastrointestinal: ABSENT: abdominal pain, constipation, diarrhea, hematemesis, hematochezia, nausea, vomiting Genitourinary: ABSENT: dysuria, hematuria Musculoskeletal: ABSENT: joint swelling Integumentary: ABSENT: rash, wounds Neurological: ABSENT: abnormal gait, abnormal speech, confusion, dizziness, focal weakness, syncope Psychiatric: ABSENT: anxiety, depression, homidical ideation, suicidal ideation Endocrine: ABSENT: cold intolerance, heat intolerance, polydipsia, polyuria Hematologic/Lymphatic: ABSENT: easy bleeding, easy bruising Physical Exam Vital Signs: Temp Pulse Resp BP Pulse Ox 97.4 F 78 30 H 149/83 H 96 11/10/16 05:25 11/10/16 06:05 11/10/16 05:25 11/10/16 05:25 11/10/16 05:25 Intake & Output 11/08/16 11/09/16 11/10/16 11:59 11:59 11:59 Weight 47.1 kg General appearance: PRESENT: cooperative, mild distress, well-developed, well- nourished, other - Chronically ill-appearing with cachexia and temporal wasting Head exam: PRESENT: atraumatic, normocephalic Eye exam: PRESENT: conjunctiva pink, EOMI, PERRLA. ABSENT: scleral icterus Ear exam: PRESENT: normal external ear exam Mouth exam: PRESENT: moist, tongue midline Neck exam: ABSENT: carotid bruit, JVD, lymphadenopathy, thyromegaly Respiratory exam: PRESENT: accessory muscle use, crackles, decreased breath sounds, prolonged expiratory phas, symmetrical, tachypnea. ABSENT: rhonchi, stridor Cardiovascular exam: PRESENT: RRR. ABSENT: diastolic murmur, rubs, systolic murmur Pulses: PRESENT: normal dorsalis pedis pul GI/Abdominal exam: PRESENT: normal bowel sounds, soft. ABSENT: distended, guarding, mass, organolmegaly, rebound, tenderness Rectal exam: PRESENT: deferred Extremities exam: PRESENT: full ROM. ABSENT: calf tenderness, clubbing, pedal edema Neurological exam: PRESENT: alert, awake, oriented to person, oriented to place , oriented to time, oriented to situation, CN II-XII grossly intact. ABSENT: motor sensory deficit Psychiatric exam: PRESENT: appropriate affect, normal mood. ABSENT: homicidal ideation, suicidal ideation Skin exam: PRESENT: dry, intact, warm. ABSENT: cyanosis, rash Results Impressions: Chest X-Ray 11/09/16 17:53 IMPRESSION: COPD. NO ACUTE RADIOGRAPHIC FINDING IN THE CHEST. Chest/Abdomen CTA 11/09/16 20:17 IMPRESSION: 1. No pulmonary embolus. 2. Right hilar and upper lobe lung changes as described. Potentially related to scarring and/or previous infection. Neoplasm is also in the differential. Please correlate with full clinical history ; until recently the patient has not had thoracic imaging since 2013. Assessment & Plan - Diagnosis (1) COPD exacerbation Is this a current diagnosis for this admission?: YesPlan: Titration of Solu-Medrol to prednisone, albuterol and Atrovent nebulizer, Flovent and avoidance of tobacco smoke (2) Lung cancer, primary, with metastasis from lung to other site Is this a current diagnosis for this admission?: YesPlan: Palliative care strongly consider hospice consult (3) Tobacco abuse Is this a current diagnosis for this admission?: YesPlan: Tobacco Dependence patient received tobacco cessation counseling and offered nicotine replacement options, nicotine patch ordered - Time Time Spent: 30 to 50 Minutes
[2016-11-10] MEDS: HEPARIN SOD (PORCINE) 5,000 UNIT/ML 1 ML SYRINGE SUBCUT SCH ×3 (06:56→22:27)
[2016-11-10 07:22] LABS: HEMATOCRIT 42.3 % (36.0-47.0); HEMOGLOBIN 14.1 g/dL (12.0-15.5); MEAN CORPUSCULAR HEMOGLOBIN 33.6 pg (27.0-33.4); MEAN CORPUSCULAR HGB CONC 33.4 g/dL (32.0-36.0); MEAN CORPUSCULAR VOLUME 101 fl (80-97); RED BLOOD COUNT 4.21 10^6/uL (3.72-5.28); RED CELL DISTRIBUTION WIDTH 15.6 % (11.5-14.0); WHITE BLOOD COUNT 5.6 10^3/uL (4.0-10.5)
[2016-11-10 07:39] LABS: ANION GAP 8 (5-19); BLOOD UREA NITROGEN 14 mg/dL (7-20); CALCIUM 8.9 mg/dL (8.4-10.2); CARBON DIOXIDE 37 mmol/L (22-30); CHLORIDE 97 mmol/L (98-107); CREATININE RESULT 0.44 mg/dL (0.52-1.25); GLUCOSE 115 mg/dL (75-110); POTASSIUM 3.7 mmol/L (3.6-5.0)
--- NOTE | 2016-11-10 08:03 | Physician Advisory Note ---
Physician Advisor ProgressNote .: Pursuant to the plan for [facility], I have reviewed the medical record for this patient. Physician Advisor Statement: Excellent documentation in H&P of accessory muscle use/hypoxemia despite 2L O2 , w/tachypnea, showing evidence of Ac Resp Failure on top of her chronic resp failure requiring 2L O2, with sleep but not when awake, at baseline. Also excellent documentation of pt's cachexia w/temporal wasting. Possible documentation opportunities if attending agrees: 1. "Acute on Chronic Hypoxemic Respiratory Failure" 2. Please specify type of lung CA if possible: small cell? non-small cell? ... 3. "underweight with protein-calorie malnutrition [state mild, mod, or severe] with BMI 19.0, Cr 0.46,____[?wt loss, ?appetite loss, ]" [if possible, give specifics on intake, wt loss, loss of SQ fat & muscle mass, diminished hand correctional supervising cook strength, & clinical importance such as (A) nutritional assessment ordered, (B) modified diet or supplements ordered, (C) additional labs ordered, (D) prolonged wound healing time, (E) delayed infxn clearance] - - - Auditors are strict about the dx of malnutrition - needs to be explicitly spelled out. 4. See below r.e. status. As always, if concerned about any unstable VS or abnormal labs, please comment on them & note what doing about them, & please document each day the potential clinical problems you are concerned could occur if pt not kept in hospital for tx at this time. Discussion: 76yo female w/ chronic co-morbidities including metastatic lung CA no longer on chemo, COPD w/need for 2L O2 with sleep, ongoing tobacco dependence, CAD w/IL & stents, HTN, PVD, cervical CA - presented 11/09 PM to ED w/SOB, increased work of breathing, O2 sat 80% at home, difficulty ambulating due to fatigue. (+) conversational dyspnea, increased work of breathing, RR22-41, HR 77 on Coreg , BP 137/70, O2 sat 91% on 3L initially, WBC 8.5 with (+)Lt shift, AST 79, ALT 92, BNP 1690, CT-A = no PE or infiltrate. ED ordered sputum cx, BC, O2 3L, Duonebs x3, albuterol nebs x2, Solumedrol 80 IV , Levaquin IV, Ativan low dose IV x1. After all this, pt felt "a little bit better", but just getting up to BSC & back to bed, she was "significantly SOB & using accessory muscles to breathe". At time of H&P, pt still with RR 30s, sat 87% on 2L O2, "mild distress", chronically ill appearing w/cachexia & temporal wasting, (+)accessory muscle use , crackles, ... tachypnea. Attending ordered O2 2L, VS q4h, wt qam, f/u labs, falls precautions, tele, continued Coreg, Duonebs q6h, Prednisone 30mg bid, tiotropium daily Status: Pt chronically ill with dz that will continue to worsen, likely over the next few months or even weeks rather than years. Pt continues with persistent tachypnea this AM. Due to her frail state with multiple concerning co-morbidities, she is at high risk for worsening respiratory failure & associated acute cardiac decompensation, with potential for acute . If attending, on re-asessment of pt today, agrees that pt is not safe for d/c today, but requires at least a 2nd MN tonight of hospital care & monitoring in an Inpt setting to protect pt's health, safety, & medical condition, please document clinical concerns & it will be appropriate to change to Inpt status. Thanks for your help with documentation accuracy/specificity improvement! Susannah Durham MD [facility] Physician Advisor, Fellow of Hospital Medicine
[2016-11-10 08:06] LABS: ANISOCYTOSIS 1+; BAND NEUTROPHILS % (MANUAL) 4 % (3-5); BASOPHILS % (MANUAL) 0 % (0-2); EOSINOPHILS % (MANUAL) 0 % (0-6); LYMPHOCYTES % (MANUAL) 3 % (13-45); POLYCHROMASIA SLIGHT; TOTAL CELLS COUNTED 100
[2016-11-10] MEDS ORDERED: SIMVASTATIN 10 MG TABLET PO SCH (10:00)
[2016-11-10] MEDS ORDERED: (PENDING PHARMACY ID) (Timolol [Betimol] 5 ML) OU SCH (10:00)
[2016-11-10] MEDS ORDERED: EZETIMIBE 10 MG TABLET PO SCH (10:00)
[2016-11-10] MEDS: FOLIC ACID 1 MG TABLET PO SCH (10:00)
[2016-11-10] MEDS ORDERED: FLUTICASONE NASAL SPRAY 50 MCG/SPRY 120 SPRAY/16 GM NASL SCH (10:00)
[2016-11-10] MEDS ORDERED: KETOROLAC TROMETHAMINE INJ/PF 30 MG/1 ML SDV IV PRN (10:17)
[2016-11-10] MEDS ORDERED: KETOROLAC TROMETHAMINE INJ/PF 30 MG/1 ML SDV IV ONE (10:17)
[2016-11-10] MEDS: DILTIAZEM HCL 120 MG CAP.SR.24H PO SCH (10:26)
[2016-11-10] MEDS: DOCUSATE SODIUM 100 MG CAPSULE PO SCH ×2 (10:27→19:23)
[2016-11-10] MEDS: PREDNISONE 20 MG TABLET PO SCH ×2 (10:28→19:23)
[2016-11-10] MEDS: ASPIRIN 325 MG TABLET PO SCH (10:28)
[2016-11-10] MEDS: CARVEDILOL 12.5 MG TABLET PO SCH (10:29)
[2016-11-10] MEDS: FLUTICASONE NASAL SPRAY 50 MCG/SPRY 120 SPRAY/16 GM NASL SCH (11:51)
[2016-11-10] MEDS: VENLAFAXINE HCL 75 MG CAP.SR.24H PO SCH (11:52)
[2016-11-10] MEDS: TIOTROPIUM BROMIDE DPI 5 CAP/KIT (18 MCG/CAP) IH SCH (11:52)
[2016-11-10] MEDS: FLUTICASONE/SALMETEROL DISKUS 250-50 MCG/DOSE IH SCH ×2 (11:53→22:27)
[2016-11-10] MEDS ORDERED: TRAMADOL HCL 50 MG TABLET PO PRN (13:21)
--- NOTE | 2016-11-10 13:36 | PDOC PROGRESS REPORT ---
Subjective Progress Note for:: 11/10/16 Subjective:: Patient seen on morning rounds. She is seen on the side of bed. She states her breathing is somewhat improved from last night. She continues to have productive cough raising white secretions. She denies any chest pain, dyspnea or dizziness. Denies any nausea, vomiting or abdominal pain. She does have a headache at the present time. She denies any other musculoskeletal complaints. Physical Exam Vital Signs: Temp Pulse Resp BP Pulse Ox 97.6 F 82 18 136/76 H 100 11/10/16 07:51 11/10/16 07:51 11/10/16 07:51 11/10/16 07:51 11/10/16 07:51 Intake & Output 11/09/16 11/10/16 11/11/16 06:59 06:59 06:59 Weight 47.1 kg General appearance: PRESENT: no acute distress, thin, well-developed Head exam: PRESENT: atraumatic, normocephalic Eye exam: PRESENT: conjunctiva pink, EOMI, PERRLA. ABSENT: scleral icterus Ear exam: PRESENT: normal external ear exam Mouth exam: PRESENT: moist, tongue midline Neck exam: ABSENT: carotid bruit, JVD, lymphadenopathy, thyromegaly Respiratory exam: PRESENT: clear to auscultation lj. ABSENT: rales, rhonchi, wheezes Cardiovascular exam: PRESENT: RRR. ABSENT: diastolic murmur, rubs, systolic murmur Pulses: PRESENT: normal dorsalis pedis pul Vascular exam: PRESENT: normal capillary refill GI/Abdominal exam: PRESENT: normal bowel sounds, soft. ABSENT: distended, guarding, mass, organolmegaly, rebound, tenderness Rectal exam: PRESENT: deferred Extremities exam: PRESENT: full ROM. ABSENT: calf tenderness, clubbing, pedal edema Neurological exam: PRESENT: alert, awake, oriented to person, oriented to place , oriented to time, oriented to situation, CN II-XII grossly intact. ABSENT: motor sensory deficit Psychiatric exam: PRESENT: appropriate affect, normal mood. ABSENT: homicidal ideation, suicidal ideation Skin exam: PRESENT: dry, intact, warm. ABSENT: cyanosis, rash Results Laboratory Results: 11/10/16 06:40 11/10/16 06:40 11/10/16 11/10/16 06:40 06:40 WBC 5.6 RBC 4.21 Hgb 14.1 Hct 42.3 MCV 101 H MCH 33.6 H MCHC 33.4 RDW 15.6 H Plt Count 152 Seg Neutrophils % Not Reportable Lymphocytes % Not Reportable Monocytes % Not Reportable Eosinophils % Not Reportable Basophils % Not Reportable Absolute Neutrophils Not Reportable Absolute Lymphocytes Not Reportable Absolute Monocytes Not Reportable Absolute Eosinophils Not Reportable Absolute Basophils Not Reportable Sodium 142.0 Potassium 3.7 Chloride 97 L Carbon Dioxide 37 H Anion Gap 8 BUN 14 Creatinine 0.44 L Est GFR ( Amer) > 60 Est GFR (Non-Af Amer) > 60 Glucose 115 H Calcium 8.9 Impressions: Chest X-Ray 11/09/16 17:53 IMPRESSION: COPD. NO ACUTE RADIOGRAPHIC FINDING IN THE CHEST. Chest/Abdomen CTA 11/09/16 20:17 IMPRESSION: 1. No pulmonary embolus. 2. Right hilar and upper lobe lung changes as described. Potentially related to scarring and/or previous infection. Neoplasm is also in the differential. Please correlate with full clinical history ; until recently the patient has not had thoracic imaging since 2012. Assessment & Plan - Diagnosis (1) Acute and chronic respiratory failure with hypoxia Is this a current diagnosis for this admission?: YesPlan: Continue nebulizers, inhalers, oxygen and mucolytics. Patient with history of COPD on home oxygen at 2l/min at night. History of stage IV NSCLC with recent new metastases to shoulder on Palliative Care radiation. Oxygen saturation of 87 %. Patient still continues to smoke and admits to smoking after discharge. (2) Lung cancer, primary, with metastasis from lung to other site Qualifiers: Laterality: right Qualified Code(s): C34.91 - Malignant neoplasm of unspecified part of right bronchus or lung Is this a current diagnosis for this admission?: YesPlan: Recent progression to right shoulder. Chemo was stopped. She is doing palliative radiation. Denies bone pain at the present time (3) Tobacco abuse Is this a current diagnosis for this admission?: YesPlan: Patient continues to smoke and has no intentions of stopping (4) CAD (coronary artery disease), [place] coronary artery Qualifiers: [place] vs. transplanted heart: [place] heart Associated angina: without angina Qualified Code(s): I25.10 - Atherosclerotic heart disease of [place] coronary artery without angina pectoris Is this a current diagnosis for this admission?: YesPlan: Patient with history of CAD with stents. Continue current medications (5) Essential (primary) hypertension Is this a current diagnosis for this admission?: YesPlan: Continue current medications. She is normotensive (6) COPD (chronic obstructive pulmonary disease) with emphysema Qualifiers: Emphysema type: unspecified Qualified Code(s): J43.9 - Emphysema, unspecified Is this a current diagnosis for this admission?: YesPlan: On home oxygen 2l/min at night. She continues to smoke and has progression of present nonsmall cell lung cancer (7) Goals of care, counseling/discussion Is this a current diagnosis for this admission?: YesPlan: Patient and have a good understanding of her disease. She is aware that she is receiving palliative treatment for symptom management. She wishes to be a Do Not Rescuscitate. (8) Protein-calorie malnutrition, moderate Is this a current diagnosis for this admission?: YesPlan: Evidence by BMI of 19.0. Regular diet with supplements . She is on megace for appetite stimulation - Time Time Spent with patient: 25-34 minutes Critical Time spent with patient: 15-24 minutes Smoking Cessation Education: 3 to 10 minutes Medications reviewed and adjusted accordingly: Yes
[2016-11-10] MEDS ORDERED: (PENDING PHARMACY ID) (Brimonidine Tartrate [Alphagan P] 1 DROP) OU SCH (14:00)
[2016-11-10] MEDS ORDERED: MEGESTROL ACETATE PO SCH (14:00)
[2016-11-10] MEDS: BRIMONIDINE TARTRATE 0.2% OPH SOLN 5 ML OU SCH ×2 (16:45→22:27)
[2016-11-10] MEDS: MEGESTROL ACETATE SUSP 400 MG/10 ML UDCUP PO SCH (19:23)
[2016-11-10] MEDS ORDERED: CARVEDILOL 12.5 MG TABLET PO SCH (22:00)
[2016-11-10] MEDS ORDERED: FLUTICASONE/SALMETEROL DISKUS 500-50 MCG/DOSE IH SCH (22:00)
[2016-11-10] MEDS: BIMATOPROST 0.01% OPH SOLN 2.5 ML/BOTTLE OU SCH (22:27)
[2016-11-11] MEDS: IPRATROPIUM/ALBUTEROL 0.5-2.5 MG/3 ML AMPUL NEB SCH ×4 (01:57→19:36)
[2016-11-11] MEDS: BRIMONIDINE TARTRATE 0.2% OPH SOLN 5 ML OU SCH ×3 (05:38→21:28)
[2016-11-11] MEDS: HEPARIN SOD (PORCINE) 5,000 UNIT/ML 1 ML SYRINGE SUBCUT SCH ×3 (05:38→21:28)
[2016-11-11] MEDS: MEGESTROL ACETATE SUSP 400 MG/10 ML UDCUP PO SCH ×5 (09:45→21:28)
[2016-11-11] MEDS: ASPIRIN 325 MG TABLET PO SCH (09:45)
[2016-11-11] MEDS: ATORVASTATIN CALCIUM 40 MG TABLET PO SCH (09:46)
[2016-11-11] MEDS: DOCUSATE SODIUM 100 MG CAPSULE PO SCH ×2 (09:46→17:18)
[2016-11-11] MEDS: CARVEDILOL 12.5 MG TABLET PO SCH ×3 (09:47→21:28)
[2016-11-11] MEDS: DILTIAZEM HCL 120 MG CAP.SR.24H PO SCH (09:48)
[2016-11-11] MEDS: FLUTICASONE NASAL SPRAY 50 MCG/SPRY 120 SPRAY/16 GM NASL SCH (09:48)
[2016-11-11] MEDS: VENLAFAXINE HCL 75 MG CAP.SR.24H PO SCH (09:48)
[2016-11-11] MEDS: TIOTROPIUM BROMIDE DPI 5 CAP/KIT (18 MCG/CAP) IH SCH (09:49)
[2016-11-11] MEDS: FLUTICASONE/SALMETEROL DISKUS 250-50 MCG/DOSE IH SCH ×2 (09:49→21:28)
[2016-11-11] MEDS: FOLIC ACID 1 MG TABLET PO SCH (09:50)
[2016-11-11] MEDS: PREDNISONE 20 MG TABLET PO SCH ×2 (09:53→17:18)
[2016-11-11] MEDS ORDERED: TIOTROPIUM BROMIDE DPI 5 CAP/KIT (18 MCG/CAP) IH SCH (10:00)
--- NOTE | 2016-11-11 16:09 | PDOC PROGRESS REPORT ---
Subjective Progress Note for:: 11/11/16 Subjective:: The patient was seen earlier today on rounds. The patient is quite flat but overall says she is improved. The patient denies any nausea, vomiting, diarrhea , dizziness, chest pain, heart palpitations, fevers, or chills. The patient has remained afebrile. Blood pressures have been in a good range. When prompted the patient voices no other concerns at this time. Review of systems: The rest of the review of systems is negative. Physical Exam Vital Signs: Temp Pulse Resp BP Pulse Ox 98.5 F 83 33 H 104/61 98 11/11/16 11:32 11/11/16 14:37 11/11/16 14:45 11/11/16 11:32 11/11/16 14:45 Intake & Output 11/09/16 11/10/16 11/11/16 23:59 23:59 23:59 Intake Total 340 5 Output Total 600 Balance -260 5 Weight 47 kg General appearance: PRESENT: no acute distress, disheveled, thin, well- developed. ABSENT: well-nourished Head exam: PRESENT: atraumatic, normocephalic Eye exam: PRESENT: conjunctiva pale, EOMI, PERRLA. ABSENT: scleral icterus Ear exam: PRESENT: normal external ear exam Mouth exam: PRESENT: moist, tongue midline Neck exam: ABSENT: JVD Respiratory exam: PRESENT: decreased breath sounds, symmetrical, unlabored. ABSENT: rales, rhonchi, tachypnea, wheezes Cardiovascular exam: PRESENT: RRR. ABSENT: diastolic murmur, rubs, systolic murmur Pulses: PRESENT: normal dorsalis pedis pul Vascular exam: PRESENT: normal capillary refill GI/Abdominal exam: PRESENT: normal bowel sounds, soft. ABSENT: distended, guarding, mass, organolmegaly, rebound, tenderness Rectal exam: PRESENT: deferred Extremities exam: PRESENT: full ROM. ABSENT: calf tenderness, clubbing, pedal edema Neurological exam: PRESENT: alert, awake, oriented to person, oriented to place , oriented to time, oriented to situation, CN II-XII grossly intact. ABSENT: motor sensory deficit Psychiatric exam: PRESENT: depressed, flat affect - But appropriate considering the patient's prognosis. ABSENT: homicidal ideation, suicidal ideation Skin exam: PRESENT: dry, intact, warm. ABSENT: cyanosis, rash Results Laboratory Results: Labs- Last Values WBC 5.6 10^3/uL (4.0-10.5) 11/10/16 06:40 RBC 4.21 10^6/uL (3.72-5.28) 11/10/16 06:40 Hgb 14.1 g/dL (12.0-15.5) 11/10/16 06:40 Hct 42.3 % (36.0-47.0) 11/10/16 06:40 MCV 101 fl (80-97) H 11/10/16 06:40 MCH 33.6 pg (27.0-33.4) H 11/10/16 06:40 MCHC 33.4 g/dL (32.0-36.0) 11/10/16 06:40 RDW 15.6 % (11.5-14.0) H 11/10/16 06:40 Plt Count 152 10^3/uL (150-450) 11/10/16 06:40 Total Counted 100 11/10/16 06:40 Seg Neutrophils % Not Reportable 11/10/16 06:40 Seg Neuts % (Manual) 90 % (42-78) H 11/10/16 06:40 Band Neutrophils % 4 % (3-5) 11/10/16 06:40 Lymphocytes % Not Reportable 11/10/16 06:40 Lymphocytes % (Manual) 3 % (13-45) L 11/10/16 06:40 Atypical Lymphs % 1 % (0) 11/09/16 18:39 Monocytes % Not Reportable 11/10/16 06:40 Monocytes % (Manual) 3 % (3-13) 11/10/16 06:40 Eosinophils % Not Reportable 11/10/16 06:40 Eosinophils % (Manual) 0 % (0-6) 11/10/16 06:40 Basophils % Not Reportable 11/10/16 06:40 Basophils % (Manual) 0 % (0-2) 11/10/16 06:40 Absolute Neutrophils Not Reportable 11/10/16 06:40 Abs Neuts (Manual) 5.3 10^3/uL (1.7-8.2) 11/10/16 06:40 Absolute Lymphocytes Not Reportable 11/10/16 06:40 Abs Lymphs (Manual) 0.2 10^3/uL (0.5-4.7) L 11/10/16 06:40 Absolute Monocytes Not Reportable 11/10/16 06:40 Abs Monocytes (Manual) 0.2 10^3/uL (0.1-1.4) 11/10/16 06:40 Absolute Eosinophils Not Reportable 11/10/16 06:40 Absolute Eos (Manual) 0.0 10^3/uL (0.0-0.6) 11/10/16 06:40 Absolute Basophils Not Reportable 11/10/16 06:40 Abs Basophils (Manual) 0.0 10^3/uL (0.0-0.2) 11/10/16 06:40 Toxic Vacuolation PRESENT 11/09/16 18:39 Platelet Comment ADEQUATE 11/10/16 06:40 Polychromasia SLIGHT 11/10/16 06:40 Poikilocytosis 1+ 11/09/16 18:39 Basophilic Stippling PRESENT 11/10/16 06:40 Anisocytosis 1+ 11/10/16 06:40 Macrocytosis SLIGHT 11/10/16 06:40 Ovalocytes 1+ 11/09/16 18:39 Sodium 142.0 mmol/L (137-145) 11/10/16 06:40 Potassium 3.7 mmol/L (3.6-5.0) 11/10/16 06:40 Chloride 97 mmol/L (98-107) L 11/10/16 06:40 Carbon Dioxide 37 mmol/L (22-30) H 11/10/16 06:40 Anion Gap 8 (5-19) 11/10/16 06:40 BUN 14 mg/dL (7-20) 11/10/16 06:40 Creatinine 0.44 mg/dL (0.52-1.25) L 11/10/16 06:40 Est GFR ( Amer) > 60 (>60) 11/10/16 06:40 Est GFR (Non-Af Amer) > 60 (>60) 11/10/16 06:40 Glucose 115 mg/dL (75-110) H 11/10/16 06:40 Calcium 8.9 mg/dL (8.4-10.2) 11/10/16 06:40 Magnesium 2.0 mg/dL (1.6-2.3) 11/09/16 18:39 Total Bilirubin 0.5 mg/dL (0.2-1.3) 11/09/16 18:39 Direct Bilirubin 0.0 mg/dL (0.0-0.3) 11/09/16 18:39 AST 79 U/L (14-36) H 11/09/16 18:39 ALT 92 U/L (9-52) H 11/09/16 18:39 Alkaline Phosphatase 109 U/L (38-126) 11/09/16 18:39 Creatine Kinase 61 U/L (30-135) 11/09/16 18:39 CK-MB (CK-2) 2.62 ng/mL (<4.55) 11/09/16 18:39 Troponin I < 0.012 ng/mL 11/09/16 18:39 NT-Pro-B Natriuret Pep 1690 pg/mL (<450) H 11/09/16 18:39 Total Protein 6.5 g/dL (6.3-8.2) 11/09/16 18:39 Albumin 3.9 g/dL (3.5-5.0) 11/09/16 18:39 Urine Color YELLOW 11/09/16 19:23 Urine Appearance CLEAR 11/09/16 19:23 Urine pH 5.0 (5.0-9.0) 11/09/16 19:23 Ur Specific [place] 1.015 11/09/16 19:23 Urine Protein NEGATIVE mg/dL (NEGATIVE) 11/09/16 19:23 Urine Glucose (UA) NEGATIVE mg/dL (NEGATIVE) 11/09/16 19:23 Urine Ketones NEGATIVE mg/dL (NEGATIVE) 11/09/16 19:23 Urine Blood NEGATIVE (NEGATIVE) 11/09/16 19:23 Urine Nitrite NEGATIVE (NEGATIVE) 11/09/16 19:23 Urine Bilirubin NEGATIVE (NEGATIVE) 11/09/16 19:23 Urine Urobilinogen NEGATIVE mg/dL (<2.0) 11/09/16 19:23 Ur Leukocyte Esterase NEGATIVE (NEGATIVE) 11/09/16 19:23 Urine WBC (Auto) 0 /HPF 11/09/16 19:23 Urine RBC (Auto) 1 /HPF 11/09/16 19:23 U Hyaline Cast (Auto) 9 /LPF 11/09/16 19:23 Squamous Epi Cells Auto 3 /HPF 11/09/16 19:23 Urine Mucus (Auto) RARE /LPF 11/09/16 19:23 Urine Ascorbic Acid NEGATIVE (NEGATIVE) 11/09/16 19:23 Impressions: Chest X-Ray 11/09/16 17:53 IMPRESSION: COPD. NO ACUTE RADIOGRAPHIC FINDING IN THE CHEST. Chest/Abdomen CTA 11/09/16 20:17 IMPRESSION: 1. No pulmonary embolus. 2. Right hilar and upper lobe lung changes as described. Potentially related to scarring and/or previous infection. Neoplasm is also in the differential. Please correlate with full clinical history ; until recently the patient has not had thoracic imaging since 2012. Assessment & Plan - Diagnosis (1) Lung cancer, primary, with metastasis from lung to other site Qualifiers: Laterality: right Qualified Code(s): C34.91 - Malignant neoplasm of unspecified part of right bronchus or lung Is this a current diagnosis for this admission?: YesPlan: The patient has received palliative radiation however she will go home on hospice in the a.m. (2) COPD (chronic obstructive pulmonary disease) with emphysema Qualifiers: Emphysema type: unspecified Qualified Code(s): J43.9 - Emphysema, unspecified Is this a current diagnosis for this admission?: Yes (3) Acute and chronic respiratory failure with hypoxia Is this a current diagnosis for this admission?: YesPlan: The patient is now end-stage. The patient will go home on hospice at noon tomorrow. (4) CAD (coronary artery disease), [place] coronary artery Qualifiers: [place] vs. transplanted heart: [place] heart Associated angina: without angina Qualified Code(s): I25.10 - Atherosclerotic heart disease of [place] coronary artery without angina pectoris Is this a current diagnosis for this admission?: Yes (5) Essential (primary) hypertension Is this a current diagnosis for this admission?: YesPlan: Will continue home medications. (6) Protein-calorie malnutrition, moderate Is this a current diagnosis for this admission?: Yes (7) Tobacco abuse Is this a current diagnosis for this admission?: Yes (8) Tobacco abuse Is this a current diagnosis for this admission?: Yes (9) Goals of care, counseling/discussion Is this a current diagnosis for this admission?: No - Time Time Spent with patient: 25-34 minutes Medications reviewed and adjusted accordingly: Yes Anticipated discharge: Home, Hospice Within: within 24 hours Disposition: The patient is a DNR/DNI
[2016-11-11] MEDS: BIMATOPROST 0.01% OPH SOLN 2.5 ML/BOTTLE OU SCH (21:28)
[2016-11-12] MEDS: IPRATROPIUM/ALBUTEROL 0.5-2.5 MG/3 ML AMPUL NEB SCH ×2 (02:24→07:27)
[2016-11-12] MEDS: HEPARIN SOD (PORCINE) 5,000 UNIT/ML 1 ML SYRINGE SUBCUT SCH (05:02)
[2016-11-12] MEDS: BRIMONIDINE TARTRATE 0.2% OPH SOLN 5 ML OU SCH (05:02)
[2016-11-12] MEDS: TIOTROPIUM BROMIDE DPI 5 CAP/KIT (18 MCG/CAP) IH SCH (10:41)
[2016-11-12] MEDS: FLUTICASONE/SALMETEROL DISKUS 250-50 MCG/DOSE IH SCH (10:42)
[2016-11-12] MEDS: FLUTICASONE NASAL SPRAY 50 MCG/SPRY 120 SPRAY/16 GM NASL SCH (10:43)
[2016-11-12] MEDS: ASPIRIN 325 MG TABLET PO SCH (10:44)
[2016-11-12] MEDS: ATORVASTATIN CALCIUM 40 MG TABLET PO SCH (10:44)
[2016-11-12] MEDS: CARVEDILOL 12.5 MG TABLET PO SCH (10:44)
[2016-11-12] MEDS: DOCUSATE SODIUM 100 MG CAPSULE PO SCH (10:45)
[2016-11-12] MEDS: FOLIC ACID 1 MG TABLET PO SCH (10:45)
[2016-11-12] MEDS: DILTIAZEM HCL 120 MG CAP.SR.24H PO SCH (10:45)
[2016-11-12] MEDS: PREDNISONE 20 MG TABLET PO SCH (10:45)
[2016-11-12] MEDS: MEGESTROL ACETATE SUSP 400 MG/10 ML UDCUP PO SCH (10:46)
[2016-11-12] MEDS: VENLAFAXINE HCL 75 MG CAP.SR.24H PO SCH (10:48)
[2016-11-12 11:53] VITALS: BP 149/83
--- NOTE | 2016-11-12 17:12 | PDOC DISCHARGE SUMMARY ---
General - Admit/Disc Date/PCP Admission Date/Primary Care Provider: 11/10/16 16:06 [facility] hospice Discharge Date: 11/12/16 - Discharge Diagnosis (1) Lung cancer, primary, with metastasis from lung to other site Is this a current diagnosis for this admission?: Yes (2) COPD (chronic obstructive pulmonary disease) with emphysema Is this a current diagnosis for this admission?: Yes (3) Acute and chronic respiratory failure with hypoxia Is this a current diagnosis for this admission?: Yes (4) CAD (coronary artery disease), [place] coronary artery Is this a current diagnosis for this admission?: Yes (5) Essential (primary) hypertension Is this a current diagnosis for this admission?: Yes (6) Protein-calorie malnutrition, moderate Is this a current diagnosis for this admission?: Yes (7) Tobacco abuse Is this a current diagnosis for this admission?: Yes (8) Goals of care, counseling/discussion Is this a current diagnosis for this admission?: No - Additional Information Resuscitation Status: Do Not Resuscitate - DNR/DNI Discharge Diet: As Tolerated Discharge Activity: Activity As Tolerated Home Medications: Atorvastatin Calcium [Lipitor 40 mg Tablet] 40 mg PO DAILY 11/10/16 Carvedilol [Coreg 12.5 mg Tablet] 18.75 mg PO Q12 11/10/16 Fluticasone/Salmeterol [Advair 500-50 Diskus 28 Dose] 1 puff IH Q12 11/10/16 Megestrol Acetate [Megace] 5 ml PO QID 11/10/16 Tiotropium [place] [Spiriva Handihaler 18 mcg/dose (30 Dose)] 1 puff IH DAILY History of Present Illness Patient complains of: Shortness of breath History of Present Illness: SHANA GIL is a 76 year old female with a past medical history of COPD, lung cancer with new metastasis and ongoing tobacco dependence who was discharged 6 hours ago following an observation for COPD exacerbation. At home she was found to be tachypneic and unable to monitor pulse oximetry prompting to seek reevaluation emergency room where she's found to have tachypnea in the 30s and oxygen saturation of 87 on 2 L. She receives IV Solu-Medrol and referred to the hospitalist for admission. She denies chest pain nausea vomiting diaphoresis. Hospital Course Hospital Course: The patient was admitted to continuous telemetry unit. The patient was placed on broad-spectrum antibiotic coverage. The patient's condition continued to decline. Discharged to home with hospice. Physical Exam Vital Signs: Temp Pulse Resp BP Pulse Ox 98.2 F 74 20 149/83 H 97 11/12/16 11:49 11/12/16 11:49 11/12/16 11:49 11/12/16 11:49 11/12/16 11:49 Intake & Output 11/10/16 11/11/16 11/12/16 23:59 23:59 23:59 Intake Total 340 567 55 Output Total 600 400 Balance -260 167 55 Weight 47 kg 47 kg General appearance: PRESENT: no acute distress, disheveled, thin, well- developed. ABSENT: well-nourished Head exam: PRESENT: atraumatic, normocephalic Eye exam: PRESENT: conjunctiva pale, EOMI, PERRLA. ABSENT: scleral icterus Ear exam: PRESENT: normal external ear exam Mouth exam: PRESENT: moist, tongue midline Neck exam: ABSENT: JVD Respiratory exam: PRESENT: decreased breath sounds, symmetrical, unlabored. ABSENT: rales, rhonchi, tachypnea, wheezes Cardiovascular exam: PRESENT: RRR. ABSENT: diastolic murmur, rubs, systolic murmur Pulses: PRESENT: normal dorsalis pedis pul Vascular exam: PRESENT: normal capillary refill GI/Abdominal exam: PRESENT: normal bowel sounds, soft. ABSENT: distended, guarding, mass, organolmegaly, rebound, tenderness Rectal exam: PRESENT: deferred Extremities exam: PRESENT: full ROM. ABSENT: calf tenderness, clubbing, pedal edema Neurological exam: PRESENT: alert, awake, oriented to person, oriented to place , oriented to time, oriented to situation, CN II-XII grossly intact. ABSENT: motor sensory deficit Psychiatric exam: PRESENT: depressed, flat affect - But appropriate considering the patient's prognosis. ABSENT: homicidal ideation, suicidal ideation Skin exam: PRESENT: dry, intact, warm. ABSENT: cyanosis, rash Results Laboratory Results: Labs- Last Values WBC 5.6 10^3/uL (4.0-10.5) 11/10/16 06:40 RBC 4.21 10^6/uL (3.72-5.28) 11/10/16 06:40 Hgb 14.1 g/dL (12.0-15.5) 11/10/16 06:40 Hct 42.3 % (36.0-47.0) 11/10/16 06:40 MCV 101 fl (80-97) H 11/10/16 06:40 MCH 33.6 pg (27.0-33.4) H 11/10/16 06:40 MCHC 33.4 g/dL (32.0-36.0) 11/10/16 06:40 RDW 15.6 % (11.5-14.0) H 11/10/16 06:40 Plt Count 152 10^3/uL (150-450) 11/10/16 06:40 Total Counted 100 11/10/16 06:40 Seg Neutrophils % Not Reportable 11/10/16 06:40 Seg Neuts % (Manual) 90 % (42-78) H 11/10/16 06:40 Band Neutrophils % 4 % (3-5) 11/10/16 06:40 Lymphocytes % Not Reportable 11/10/16 06:40 Lymphocytes % (Manual) 3 % (13-45) L 11/10/16 06:40 Atypical Lymphs % 1 % (0) 11/09/16 18:39 Monocytes % Not Reportable 11/10/16 06:40 Monocytes % (Manual) 3 % (3-13) 11/10/16 06:40 Eosinophils % Not Reportable 11/10/16 06:40 Eosinophils % (Manual) 0 % (0-6) 11/10/16 06:40 Basophils % Not Reportable 11/10/16 06:40 Basophils % (Manual) 0 % (0-2) 11/10/16 06:40 Absolute Neutrophils Not Reportable 11/10/16 06:40 Abs Neuts (Manual) 5.3 10^3/uL (1.7-8.2) 11/10/16 06:40 Absolute Lymphocytes Not Reportable 11/10/16 06:40 Abs Lymphs (Manual) 0.2 10^3/uL (0.5-4.7) L 11/10/16 06:40 Absolute Monocytes Not Reportable 11/10/16 06:40 Abs Monocytes (Manual) 0.2 10^3/uL (0.1-1.4) 11/10/16 06:40 Absolute Eosinophils Not Reportable 11/10/16 06:40 Absolute Eos (Manual) 0.0 10^3/uL (0.0-0.6) 11/10/16 06:40 Absolute Basophils Not Reportable 11/10/16 06:40 Abs Basophils (Manual) 0.0 10^3/uL (0.0-0.2) 11/10/16 06:40 Toxic Vacuolation PRESENT 11/09/16 18:39 Platelet Comment ADEQUATE 11/10/16 06:40 Polychromasia SLIGHT 11/10/16 06:40 Poikilocytosis 1+ 11/09/16 18:39 Basophilic Stippling PRESENT 11/10/16 06:40 Anisocytosis 1+ 11/10/16 06:40 Macrocytosis SLIGHT 11/10/16 06:40 Ovalocytes 1+ 11/09/16 18:39 Sodium 142.0 mmol/L (137-145) 11/10/16 06:40 Potassium 3.7 mmol/L (3.6-5.0) 11/10/16 06:40 Chloride 97 mmol/L (98-107) L 11/10/16 06:40 Carbon Dioxide 37 mmol/L (22-30) H 11/10/16 06:40 Anion Gap 8 (5-19) 11/10/16 06:40 BUN 14 mg/dL (7-20) 11/10/16 06:40 Creatinine 0.44 mg/dL (0.52-1.25) L 11/10/16 06:40 Est GFR ( Amer) > 60 (>60) 11/10/16 06:40 Est GFR (Non-Af Amer) > 60 (>60) 11/10/16 06:40 Glucose 115 mg/dL (75-110) H 11/10/16 06:40 Calcium 8.9 mg/dL (8.4-10.2) 11/10/16 06:40 Magnesium 2.0 mg/dL (1.6-2.3) 11/09/16 18:39 Total Bilirubin 0.5 mg/dL (0.2-1.3) 11/09/16 18:39 Direct Bilirubin 0.0 mg/dL (0.0-0.3) 11/09/16 18:39 AST 79 U/L (14-36) H 11/09/16 18:39 ALT 92 U/L (9-52) H 11/09/16 18:39 Alkaline Phosphatase 109 U/L (38-126) 11/09/16 18:39 Creatine Kinase 61 U/L (30-135) 11/09/16 18:39 CK-MB (CK-2) 2.62 ng/mL (<4.55) 11/09/16 18:39 Troponin I < 0.012 ng/mL 11/09/16 18:39 NT-Pro-B Natriuret Pep 1690 pg/mL (<450) H 11/09/16 18:39 Total Protein 6.5 g/dL (6.3-8.2) 11/09/16 18:39 Albumin 3.9 g/dL (3.5-5.0) 11/09/16 18:39 Urine Color YELLOW 11/09/16 19:23 Urine Appearance CLEAR 11/09/16 19:23 Urine pH 5.0 (5.0-9.0) 11/09/16 19:23 Ur Specific [place] 1.015 11/09/16 19:23 Urine Protein NEGATIVE mg/dL (NEGATIVE) 11/09/16 19:23 Urine Glucose (UA) NEGATIVE mg/dL (NEGATIVE) 11/09/16 19:23 Urine Ketones NEGATIVE mg/dL (NEGATIVE) 11/09/16 19:23 Urine Blood NEGATIVE (NEGATIVE) 11/09/16 19:23 Urine Nitrite NEGATIVE (NEGATIVE) 11/09/16 19:23 Urine Bilirubin NEGATIVE (NEGATIVE) 11/09/16 19:23 Urine Urobilinogen NEGATIVE mg/dL (<2.0) 11/09/16 19:23 Ur Leukocyte Esterase NEGATIVE (NEGATIVE) 11/09/16 19:23 Urine WBC (Auto) 0 /HPF 11/09/16 19:23 Urine RBC (Auto) 1 /HPF 11/09/16 19:23 U Hyaline Cast (Auto) 9 /LPF 11/09/16 19:23 Squamous Epi Cells Auto 3 /HPF 11/09/16 19:23 Urine Mucus (Auto) RARE /LPF 11/09/16 19:23 Urine Ascorbic Acid NEGATIVE (NEGATIVE) 11/09/16 19:23 Impressions: Chest X-Ray 11/09/16 17:53 IMPRESSION: COPD. NO ACUTE RADIOGRAPHIC FINDING IN THE CHEST. Chest/Abdomen CTA 11/09/16 20:17 IMPRESSION: 1. No pulmonary embolus. 2. Right hilar and upper lobe lung changes as described. Potentially related to scarring and/or previous infection. Neoplasm is also in the differential. Please correlate with full clinical history ; until recently the patient has not had thoracic imaging since 2012. Qualifiers [place] BEING DISCHARGED WITH ANY OF THE FOLLOWING DIAGNOSIS?: No Plan Discharge Plan: Discharged home to hospice.
== END 2016-11-12 12:50 | disposition hospice, home (50) | DRG 189 ==
LOC: ER 17:22 → EH 23:44 → 5 11-10 05:22 → OBSVTOIN 11-10 16:06
PROVIDERS: ADMIT Internal Medicine; ATTEND Internal Medicine
PROC: 5A09457 Assistance with Respiratory Ventilation, 24-96 Consecutive Hours, Continuous Positive Airway Pressure (ICD-10-PCS; principal; 2016-11-10)
PROC: 3E0F73Z Introduction of Anti-inflammatory into Respiratory Tract, Via Natural or Artificial Opening (ICD-10-PCS; 2016-11-10)
DX: J96.21 Acute and chronic respiratory failure with hypoxia (principal); C34.91 Malignant neoplasm of unspecified part of right bronchus or lung; C79.89 Secondary malignant neoplasm of other specified sites; E44.0 Moderate protein-calorie malnutrition; Z68.1 Body mass index [BMI] 19.9 or less, adult; J43.9 Emphysema, unspecified; J96.22 Acute and chronic respiratory failure with hypercapnia; I25.10 Atherosclerotic heart disease of native coronary artery without angina pectoris; I10 Essential (primary) hypertension; F17.210 Nicotine dependence, cigarettes, uncomplicated; E78.5 Hyperlipidemia, unspecified; M46.90 Unspecified inflammatory spondylopathy, site unspecified; D64.9 Anemia, unspecified; I73.9 Peripheral vascular disease, unspecified; I25.2 Old myocardial infarction; Z95.5 Presence of coronary angioplasty implant and graft; Z66 Do not resuscitate; Z79.899 Other long term (current) drug therapy; Z85.41 Personal history of malignant neoplasm of cervix uteri; Z90.49 Acquired absence of other specified parts of digestive tract; Z90.710 Acquired absence of both cervix and uterus; Z79.82 Long term (current) use of aspirin; Z88.8 Allergy status to other drugs, medicaments and biological substances; Z88.6 Allergy status to analgesic agent; Z82.49 Family history of ischemic heart disease and other diseases of the circulatory system
CPT/HCPCS: 36415; 71020; 71275; 80048; 80053; 81001; 82550; 82553; 83735; 83880; 84484; 85025; 87040; 87070; 87205; 93005; 93010; 94640; 94660; 96365; 96375; 99285; G0378; J1644; J1956; J2060; J2930; J3490; J7512; J7620